=== PATIENT | female | born 1940 | race Caucasian/White ===

== ENCOUNTER 2016-05-23 04:19 | Inpatient (IN) | payer MEDICARE, MEDICAID ==
[2016-05-23 04:52] LABS: ALLEN'S TEST PASS
[2016-05-23 04:54] LABS: ABG Draw Site Right Radial; TCO2 40.3 MMOL/L (23-27)
[2016-05-23 04:57] LABS: AUTOMATED BASOPHIL 0.3 % (0-2); AUTOMATED EOSINOPHIL 0.4 % (0-5); AUTOMATED LYMPH 5.8 % (17-44); AUTOMATED MONOCYTE 3.9 % (3-10); AUTOMATED NEUTROPHIL 89.6 % (45-76); MPV 7.8 fL (7.4-10.4)
[2016-05-23] MEDS ORDERED: Albuterol/Ipratropium Neb 3 ML NEB NEB ONE (04:58)
[2016-05-23] MEDS ORDERED: ALBUTEROL 0.083% 3 ML NEB NEB ONE (04:58)
[2016-05-23 05:03] LABS: PARTIAL THROMB. TIME 26.7 SEC (22-35)
[2016-05-23 05:05] LABS: BLOOD UREA NITROGEN 35 MG/DL (7-17); CALCULATED OSMOLALITY 278 MOs/Kg (270-290); CHLORIDE 88 mEq/L (98-107); GLUCOSE 235 MG/DL (70-99); SODIUM LEVEL 136 mEq/L (137-146); TOTAL PROTEIN 6.9 G/DL (6.3-8.2)
--- NOTE | 2016-05-23 05:16 | DIRPT ---
CLINICAL DATA: Acute onset of shortness of breath. Productive cough. Initial encounter. EXAM: PORTABLE CHEST 1 VIEW COMPARISON: Chest radiograph performed 05/20/2016 FINDINGS: The lungs are well-aerated. Vascular congestion is noted. There is no evidence of focal opacification, pleural effusion or pneumothorax. The cardiomediastinal silhouette is borderline normal in size. No acute osseous abnormalities are seen. There is chronic superior subluxation of both humeral heads, reflecting underlying chronic rotator cuff tears. IMPRESSION: Vascular congestion noted. Lungs remain grossly clear. Electronically Signed By: Mikey Downs M.D. On: 05/23/2016 05:13
--- NOTE | 2016-05-23 05:49 | EDPRACDOC ---
- General Information Chief Complaint: Dyspnea/Resp distress Stated Complaint: BREATHING DIFFICULTY Time Seen by Provider: 05/23/16 04:30 Information Source: Patient, [employer] Work[employer] Mode Of Arrival: Ambulance Home Medications: Home Medications Allopurinol [Zyloprim] 100 mg PO DAILY 05/23/16 Aspirin (Enteric Coated) [Ecotrin] 81 mg PO DAILY 05/23/16 Budesonide [Pulmicort Flexhaler] 180 mcg IH DAILY PRN 05/23/16 CYANOCOBALAMIN (Vitamin B-12) [Vitamin B-12] 1,000 mcg IM .MONTHLY 05/23/16 Calcium Carbonate [Calcium] 600 mg PO DAILY 05/23/16 Celecoxib [Celebrex] 200 mg PO BID 05/23/16 ClonazePAM [Klonopin] 0 mg PO TID 05/23/16 Colchicine 0.6 mg PO BID PRN 05/23/16 Diltiazem HCl [Diltiazem ER] 240 mg PO DAILY 05/23/16 Gabapentin 100 mg PO BID 05/23/16 Insulin Detemir [Levemir Flextouch] 15 unit SQ HS 05/23/16 Ipratropium [place] 15 ml NS DAILY PRN 05/23/16 Iron [Niferex-150] 65 mg PO DAILY 05/23/16 Omeprazole 40 mg PO DAILY 05/23/16 Oxycodone HCl/Acetaminophen [Oxycodone-Acetaminophen 5-325] 1 tab PO TID Potassium Chloride 20 meq PO DAILY 05/23/16 Sertraline HCl 150 mg PO DAILY 05/23/16 Tiotropium [place] [Spiriva] 18 mcg INH DAILY PRN 05/23/16 Tramadol HCl [Ultram] 50 mg PO TID 05/23/16 Allergies/Adverse Reactions: Allergies Allergy/AdvReac Type Severity Reaction Status Date / Time morphine Allergy See Verified 05/23/16 04:55 Comments - History of Present Illness Onset: 1 WEEK Shortness of Breath: Moderate Relevant History: Reports: COPD (END STAGE) Cough: Reports: Non-productive SOB Worsens with: Reports: Nothing, Movement, Anxiety, Coughing SOB Improves with: Reports: Inhaler, Rest, Position Associated Signs and symptoms: Reports: Cough - Treatment Prior to ED Arrival Reported Medications/Treatment [employer] Solu-Medrol (Dose/Time) 125 mg IV Meds/Treatments Given Neb Treatment(Albuterol) Medications [employer] (Medication/ Albuterol, Duo Neb Dose/Time) EMS Treatment ALS IV Yes Comment 20 G IV right wrist ED Past Medical History - Patient Medical History Cardiac History: Reports: Atrial Fibrillation (Paroxysmal), Hypertension, Congestive Heart Failure Respiratory History: Reports: Asthma, COPD, Pneumonia GI/ History: Reports: Urinary Tract Infection, Gastroesophageal Reflux Musculoskeletal History: Reports: Arthritis, Gout Psychological History: Reports: Anxiety. Denies: Depression, Substance Use Disorder Systemic History: Reports: Diabetes Additional Past Medical History: ODONTOID fracture (11/29/13) STILL NONUNION Surgical History: Reports: Cholecystectomy, Tonsillectomy/Adnoidectomy, Other ( Unable to determine at this time.) - Family Medical History Reports: Diabetes (Mother), Cancer (brother and sister), Cardiac Disorders ( Mother). Denies: Hypertension, Stroke - Social Medical History Smoking Status: Former smoker Social History: Denies: Substance Use Disorder - Physical Exam Constitutional: Alert, Distress, Restless. negative: Well nourished, Well appearing Oriented to: Time, Person, Place Last recorded Vital Signs: Last Vital Signs Temp 100.0 F 05/23/16 04:20 Pulse 132 H 05/23/16 04:55 Resp 22 05/23/16 04:55 BP 148/79 05/23/16 04:55 Pulse Ox 95 05/23/16 04:55 Oxygen Pulse Oxygen Saturation 95 O2 Device Nasal Cannula Oxygen Flow Rate 2 Fraction of Inspired Oxygen ( FIO2) - HEENT Head: Normal Eye Exam: Normal. negative: Pale Conjunctiva, Scleral Icterus Oropharynx: Normal. negative: Membranes Dry Neck: Normal. negative: Edema, Limited ROM, Lymphadenopathy, Meningeal Signs - Respiratory/Cardiovascular Respiratory: Accessory Muscle Use, Diminished, Rhonchi, Tachypnea, Wheezes, Other (UNABLE TO SPEAK CLEARLY) Cardiovascular: Tachycardia - GI Auscultation: Normal Tenderness: Non tender Mcgee's Sign: Negative - Bladder: Normal - Musculoskeletal Back: Normal. negative: CVA Tenderness Extremities: Clubbing, Cyanosis, Other (CHRONIC VENOUS STAINING). negative: Pedal Edema - Integumentary Skin: Normal, Warm, Dry - Neurologic Memory Impaired: Normal Motor Function: Other ([place]) Mood Description: Anxious Thought: Coherent ED SOB MDM - Re-evaluation Re-evaluation 3 Re-evaluation Time: 05:56 (MUCH IMPROVED) - Results Result Diagrams: 05/23/16 04:43 05/23/16 04:43 Results: WBC 5.5 xk/uL (3.8-10.8) 05/23/16 04:43 RBC 4.22 xM/uL (4.20-5.40) 05/23/16 04:43 Hgb 12.3 g/dL (12.0-16.0) 05/23/16 04:43 Hct 36.6 % (36-47) 05/23/16 04:43 MCV 87 fL (81-99) 05/23/16 04:43 MCH 29.0 pg (27-32) 05/23/16 04:43 MCHC 33.5 g/dl (33-36) 05/23/16 04:43 RDW 14.6 % (11.5-14.5) H 05/23/16 04:43 Plt Count 100 xk/uL (130-400) L 05/23/16 04:43 MPV 7.8 fL (7.4-10.4) 05/23/16 04:43 Neut % (Auto) 89.6 % (45-76) H 05/23/16 04:43 Lymph % (Auto) 5.8 % (17-44) L 05/23/16 04:43 [place] % (Auto) 3.9 % (3-10) 05/23/16 04:43 Eos % (Auto) 0.4 % (0-5) 05/23/16 04:43 Baso % (Auto) 0.3 % (0-2) 05/23/16 04:43 Absolute Neuts (auto) 4.90 xk/uL (1.7-8.2) 05/23/16 04:43 Absolute Lymphs (auto) 0.28 xk/uL (0.65-4.75) L 05/23/16 04:43 PT 10.5 SEC (9.2-11.2) 05/23/16 04:43 INR 1.0 05/23/16 04:43 APTT 26.7 SEC (22-35) 05/23/16 04:43 Puncture Site Right radial 05/23/16 04:45 pH 7.400 pH UNITS (7.35-7.45) 05/23/16 04:45 pCO2 62.0 mmHg (35-45) H 05/23/16 04:45 pO2 76.0 mmHg (80-100) L 05/23/16 04:45 HCO3 38.4 MMOL/L (22-26) H 05/23/16 04:45 Total CO2 40.3 MMOL/L (23-27) H 05/23/16 04:45 Base Excess 11.0 (+/- 2) H 05/23/16 04:45 FiO2 % 3 05/23/16 04:45 Specimen Drawn By Rakma 05/23/16 04:45 Sodium 136 mEq/L (137-146) L 05/23/16 04:43 Potassium 4.2 mEq/L (3.5-5.1) 05/23/16 04:43 Chloride 88 mEq/L (98-107) L 05/23/16 04:43 Carbon Dioxide 38 mMOL/L (22-33) H 05/23/16 04:43 Anion Gap 14 mEq/L (8-16) 05/23/16 04:43 BUN 35 MG/DL (7-17) H 05/23/16 04:43 Creatinine 1.20 MG/DL (0.52-1.04) H 05/23/16 04:43 Estimated GFR (MDRD) 44 mL/min (>=60) L 05/23/16 04:43 Glucose 235 MG/DL (70-99) H 05/23/16 04:43 Calculated Osmolality 278 MOs/Kg (270-290) 05/23/16 04:43 Lactic Acid 1.6 mEq/L (0.7-2.1) 05/23/16 04:43 Calcium 9.0 MG/DL (8.4-10.2) 05/23/16 04:43 Total Bilirubin 0.7 MG/DL (0.2-1.3) 05/23/16 04:43 AST 32 IU/L (14-36) 05/23/16 04:43 ALT 36 IU/L (9-52) 05/23/16 04:43 Alkaline Phosphatase 184 IU/L (55-165) H 05/23/16 04:43 Ypd-E-Wxvenwyaccy Pept 316 pg/mL (0-900) 05/23/16 04:43 Total Protein 6.9 G/DL (6.3-8.2) 05/23/16 04:43 Albumin 4.1 G/DL (3.5-5.0) 05/23/16 04:43 Lab Results 05/23/16 05/23/16 05/23/16 04:45 04:43 04:43 WBC 5.5 RBC 4.22 Hgb 12.3 Hct 36.6 MCV 87 MCH 29.0 MCHC 33.5 RDW 14.6 H Plt Count 100 L MPV 7.8 Neut % (Auto) 89.6 H Lymph % (Auto) 5.8 L [place] % (Auto) 3.9 Eos % (Auto) 0.4 Baso % (Auto) 0.3 Absolute Neuts (auto) 4.90 Absolute Lymphs (auto) 0.28 L PT 10.5 INR 1.0 APTT 26.7 Puncture Site Right radial pH 7.400 pCO2 62.0 H pO2 76.0 L HCO3 38.4 H Total CO2 40.3 H Base Excess 11.0 H FiO2 % 3 Specimen Drawn By Rakma Sodium Potassium Chloride Carbon Dioxide Anion Gap BUN Creatinine Estimated GFR (MDRD) Glucose Calculated Osmolality Lactic Acid Calcium Total Bilirubin AST ALT Alkaline Phosphatase Qff-G-Tviaqbrixce Pept Total Protein Albumin 05/23/16 05/23/16 04:43 04:43 WBC RBC Hgb Hct MCV MCH MCHC RDW Plt Count MPV Neut % (Auto) Lymph % (Auto) [place] % (Auto) Eos % (Auto) Baso % (Auto) Absolute Neuts (auto) Absolute Lymphs (auto) PT INR APTT Puncture Site pH pCO2 pO2 HCO3 Total CO2 Base Excess FiO2 % Specimen Drawn By Sodium 136 L Potassium 4.2 Chloride 88 L Carbon Dioxide 38 H Anion Gap 14 BUN 35 H Creatinine 1.20 H Estimated GFR (MDRD) 44 L Glucose 235 H Calculated Osmolality 278 Lactic Acid 1.6 Calcium 9.0 Total Bilirubin 0.7 AST 32 ALT 36 Alkaline Phosphatase 184 H Mjp-B-Xjnroxtazbn Pept 316 Total Protein 6.9 Albumin 4.1 - EKG EKG #1 EKG Time: 04:33 -: Yes EKG interpreted by me Rate: bpm: 128 [place]: LAD Rhythm: NSR Block: 1, RBBB Hypertrophy: LVH ST: Inf, Nonsp Comparison: 02/18/16 (SIMILAR) - Diagnostic Imaging Chest Image interpreted by: Radiologist Diagnostic Imaging Comments: Patient Name: HSELLY PEARCE LOC: ED : 1940 AGE: 75 Order Date:05/23/16 Date of Service: Report # [id number] Ord Physician: Evangelina Rosen MD Exam # [id number] Emergency Physician: Evangelina Rosen MD Exam(s): [id number] RAD/DG CHEST PORTABLE CLINICAL DATA: Acute onset of shortness of breath. Productive cough. Initial encounter. EXAM: PORTABLE CHEST 1 VIEW COMPARISON: Chest radiograph performed 05/20/2016 FINDINGS: The lungs are well-aerated. Vascular congestion is noted. There is no evidence of focal opacification, pleural effusion or pneumothorax. The cardiomediastinal silhouette is borderline normal in size. No acute osseous abnormalities are seen. There is chronic superior subluxation of both humeral heads, reflecting underlying chronic rotator cuff tears. IMPRESSION: Vascular congestion noted. Lungs remain grossly clear. Electronically Signed By: Mikey Downs M.D. On: 05/23/2016 05:13 Electronically Signed By: Mikey Downs MD Electronically Signed Date/Time: [id number] Dictate Date/Time: 05/23/16511 Technologist: Erna Odom Transcribed By: Marisa Transcribed Date/Time: 05/23/16 0513 - Departure Disposition: Admit IP To This Hospital Condition: Stable Final Diagnosis: COPD with acute lower respiratory infection, Respiratory distress Instructions: COPD (Chronic Obstructive Pulmonary Disease) (ED) Education/Counseling Given To: Patient Education/Counseling Given Regarding: Diagnosis, Treatment, Prognosis Decision to Admit Time: 05:58 Decision to admit date: 05/23/16 Decision to admit: from ED - Physician Consulted Hospitalist Time Called: 05:58 Provider Called: Roque Gonzalez Time Stock Turner Returned Call: 05:58
[2016-05-23] MEDS ORDERED: Levofloxacin 750 mg/150 ml D5W 750 MG/150 ML RTU IV ONE (05:58)
--- NOTE | 2016-05-23 06:04 | HISTPHYS ---
- Chief Complaint shortness of breath - History of Present Illness PRIMARY CARE PROVIDER: Dr. Cullen in [place], [place] HPI: The patient is a 75 yo woman with severe COPD, chronic respiratory failure on 3L NC at home, who presents with worsening shortness of breath. Onset: 1 week ago. Duration: intermittent first, then constant. Became so severe today that she could not even speak a full sentence. Character: Severe shortness of breath even at rest. Alleviated by: Nothing. Exacerbated by: Nothing. Associated Symptoms: Fever at home. No chills or diaphoresis. Shortness of breath. Coughing productive of yellow sputum. Wheezing. No chest pain. Has heart racing and palpitations. Right heel pain. Chronic abdominal pain x 1 year with chronic constipation. No weight change and no leg swelling. Treatments: none at home except usual medications. In the emergency department, she was found to be in acute distress, with severe tachypnea and tachycardia in the 130s. She was started on BiPAP. - Medical History Cardiac History: Reports: Atrial Fibrillation (Paroxysmal), Hypertension, Congestive Heart Failure (06/2015 ECHO: EF 50-55%. DIASTOLIC. Hypokinesis mid+ apical inferior wall LV.), Other (06/2015 ECHO: EF 50-55%. DIASTOLIC. Hypokinesis mid+apical inferior wall LV. Pulm art pressure 37mmHg.) Respiratory History: Reports: Asthma, COPD (and chronic respiratory failure, on 2L NC), Pneumonia, Other (OBSTRUCTIVE SLEEP APNEA, USES CPAP) GI/ History: Reports: Urinary Tract Infection, Gastroesophageal Reflux (one year of chronic abdominal pain unknown etiology. Chronic constipation.) Musculoskeletal History: Reports: Arthritis, Gout Systemic History: Reports: Diabetes (Type 2, on insulin) Neurological History: Reports: Other (C SPINE FRACTURE, [facility], APPROX 2013, NO SURGERY.) Psychological History: Reports: Anxiety. Denies: Depression, Substance Use Disorder - Surgical History Reports: Cholecystectomy, Tonsillectomy/Adnoidectomy, Other (Benign growths removed - throat. L lumpectomy: benign. R leg. Cataracts.) - Medictions/Allergies Allergies morphine Allergy (Verified 05/23/16 04:55) See Comments VISUAL HALLUCINATIONS Current Medication List: Reviewed Home Medications Allopurinol [Zyloprim] 100 mg PO DAILY 05/23/16 Aspirin (Enteric Coated) [Ecotrin] 81 mg PO DAILY 05/23/16 Budesonide [Pulmicort Flexhaler] 180 mcg IH DAILY PRN 05/23/16 CYANOCOBALAMIN (Vitamin B-12) [Vitamin B-12] 1,000 mcg IM .MONTHLY 05/23/16 Calcium Carbonate [Calcium] 600 mg PO DAILY 05/23/16 Celecoxib [Celebrex] 200 mg PO BID 05/23/16 ClonazePAM [Klonopin] 0 mg PO TID 05/23/16 Colchicine 0.6 mg PO BID PRN 05/23/16 Diltiazem HCl [Diltiazem ER] 240 mg PO DAILY 05/23/16 Gabapentin 100 mg PO BID 05/23/16 Insulin Detemir [Levemir Flextouch] 15 unit SQ HS 05/23/16 Ipratropium [place] 15 ml NS DAILY PRN 05/23/16 Iron [Niferex-150] 65 mg PO DAILY 05/23/16 Omeprazole 40 mg PO DAILY 05/23/16 Oxycodone HCl/Acetaminophen [Oxycodone-Acetaminophen 5-325] 1 tab PO TID Potassium Chloride 20 meq PO DAILY 05/23/16 Sertraline HCl 150 mg PO DAILY 05/23/16 Tiotropium [place] [Spiriva] 18 mcg INH DAILY PRN 05/23/16 Tramadol HCl [Ultram] 50 mg PO TID 05/23/16 - Family History Reports: Diabetes (Mother), Cancer (brother and sister), Cardiac Disorders ( Mother), Other (Father of infection). Denies: Hypertension, Stroke - Social History Lives: With Family Smoking Status: Former smoker (Previously 1 ppd. Quit 2005. Started 17 yo.) Social History: Denies: Alcohol Use, Substance Use Disorder Presents with [facility] DNR form. Discussed form and code status with patient 05/23/16: patient states she wants to continue with DNR code status. - Review of Systems GENERAL: Fever at home. No chills or diaphoresis. Positive for fatigue/malaise. HEENT: No ear pain or discharge. No nasal discharge or bleeding. No throat pain or swelling. No eye pain or eye redness. RESPIRATORY: Shortness of breath. Coughing productive of yellow sputum. Wheezing. CARDIOVASCULAR: No chest pain. Has heart racing and palpitations. GI: Chronic abdominal pain x 1 year with chronic constipation. No nausea, vomiting, diarrhea, or bloody stool. NEUROLOGICAL: No headache or new focal weakness. Chronic upper extremity weakness. INTEGUMENT: no rashes, itching, or lesions. LYMPHATIC SYSTEM: no lymph node swelling or pain. MUSCULOSKELETAL: Right heel pain; otherwise, no new pain or joint swelling. GENITOURINARY: No dysuria or hematuria. ENDOCRINE: No polyuria or polydipsia. HEME: No chronic anemia, bleeding. Positive for easy bruising. - Physical Exam Vital Signs: Initial Vitals Temperature 100.0 F 05/23/16 04:20 Pulse Rate 131 H 05/23/16 04:20 Respiratory Rate 35 H 05/23/16 04:20 Blood Pressure 206/86 H 05/23/16 04:20 Pulse Oxygen Saturation 93 05/23/16 04:20 Vital Signs - 24 hr 05/23/16 05/23/16 05/23/16 04:20 04:55 07:08 Temperature 100.0 F 98.8 F Pulse Rate 131 H 132 H 114 Respiratory 35 H 22 18 Rate Blood Pressure 206/86 H 148/79 127/82 Pulse Oxygen 93 95 99 Saturation 05/23/16 07:15 Temperature Pulse Rate 120 H Respiratory 18 Rate Blood Pressure 144/84 Pulse Oxygen 91 Saturation Weight: 59.1 kg Height: 5'2" BMI: 23.8 - Other Exam Other Exam Findings: GENERAL: Ill-appearing, thin, in acute distress. HEENT: Normocephalic, atraumatic; pupils equal and round. Nares patent, without discharge or bleeding. No oropharyngeal lesions or erythema. Mucous membranes are dry. NECK: is supple, no masses, trachea midline. RESPIRATORY: Clear to auscultation bilaterally. Chest wall movements are symmetric. Tachypnea and use of accessory muscles to breathe. No rales. Bilateral inspiratory and expiratory wheezing. Bilateral coarse breath sounds/rhonchi. CARDIOVASCULAR: Normal S1, S2. Murmur 2/6 systolic. No rubs, or gallops. PMI non -displaced. Carotids: no carotid bruits. Tachycardia. DP pulses 2+ bilaterally. GI: soft, non-distended, normal active bowel sounds. No hepatosplenomegaly. Mild generalized tenderness. INTEGUMENT: Clean, dry, and intact. Large areas of ecchymoses on arms and legs. Legs with hyperpigmentation bilaterally. MUSCULOSKELETAL: Moving all extremities. No cyanosis. Clubbing. Edema: none bilaterally. Tenderness to palpation of right heel. NEUROLOGICAL: Cranial nerves 2-12 grossly intact. Motor 5/5 throughout lower extremities, 3+/5 in upper extremities (is chronic per patient). Reflexes: 2+ bilaterally. Babinski: toes downgoing bilaterally. Intact Finger to nose. Sensory grossly intact to light touch. Intact rapid alternating movements bilaterally. Bilateral pronator drift. PSYCHIATRIC: Fully oriented. Normal and appropriate affect. LYMPHATIC: No cervical lymphadenopathy. No supraclavicular lymphadenopathy. - Lab Results Laboratory Results - last 24 hr 05/23/16 05/23/16 05/23/16 04:43 04:43 04:43 WBC 5.5 RBC 4.22 Hgb 12.3 Hct 36.6 MCV 87 MCH 29.0 MCHC 33.5 RDW 14.6 H Plt Count 100 L MPV 7.8 Neut % (Auto) 89.6 H Lymph % (Auto) 5.8 L [place] % (Auto) 3.9 Eos % (Auto) 0.4 Baso % (Auto) 0.3 Absolute Neuts (auto) 4.90 Absolute Lymphs (auto) 0.28 L PT INR APTT Puncture Site pH pCO2 pO2 HCO3 Total CO2 Base Excess FiO2 % Specimen Drawn By Sodium 136 L Potassium 4.2 Chloride 88 L Carbon Dioxide 38 H Anion Gap 14 BUN 35 H Creatinine 1.20 H Estimated GFR (MDRD) 44 L Glucose 235 H Calculated Osmolality 278 Lactic Acid 1.6 Calcium 9.0 Total Bilirubin 0.7 AST 32 ALT 36 Alkaline Phosphatase 184 H Mwj-K-Hylcvquybft Pept 316 Total Protein 6.9 Albumin 4.1 Urine Color Urine Clarity Urine pH Ur Specific [place] Urine Protein Urine Glucose (UA) Urine Ketones Urine Occult Blood Urine Nitrite Urine Bilirubin Urine Urobilinogen Ur Leukocyte Esterase Urine RBC Urine WBC Urine Bacteria 05/23/16 05/23/16 05/23/16 04:43 04:45 05:40 WBC RBC Hgb Hct MCV MCH MCHC RDW Plt Count MPV Neut % (Auto) Lymph % (Auto) [place] % (Auto) Eos % (Auto) Baso % (Auto) Absolute Neuts (auto) Absolute Lymphs (auto) PT 10.5 INR 1.0 APTT 26.7 Puncture Site Right radial pH 7.400 pCO2 62.0 H pO2 76.0 L HCO3 38.4 H Total CO2 40.3 H Base Excess 11.0 H FiO2 % 3 Specimen Drawn By Rakma Sodium Potassium Chloride Carbon Dioxide Anion Gap BUN Creatinine Estimated GFR (MDRD) Glucose Calculated Osmolality Lactic Acid Calcium Total Bilirubin AST ALT Alkaline Phosphatase Gry-Y-Zfqqlhacduh Pept Total Protein Albumin Urine Color Pale yellow Urine Clarity Clear Urine pH 8.0 Ur Specific [place] 1.005 Urine Protein 1+ H Urine Glucose (UA) Trace Urine Ketones Neg Urine Occult Blood Neg Urine Nitrite Neg Urine Bilirubin Neg Urine Urobilinogen <2.0 Ur Leukocyte Esterase Neg Urine RBC 0-2 Urine WBC 0-2 Urine Bacteria Few - Diagnostic Findings EK bpm. Sinus tachycardia. Incomplete right bundle branch block. LVH with repolarization abnormality. Reviewed EKG personally. Chest x-ray, viewed personally: EXAM: PORTABLE CHEST 1 VIEW COMPARISON: Chest radiograph performed 05/20/2016 FINDINGS: The lungs are well-aerated. Vascular congestion is noted. There is no evidence of focal opacification, pleural effusion or pneumothorax. The cardiomediastinal silhouette is borderline normal in size. No acute osseous abnormalities are seen. There is chronic superior subluxation of both humeral heads, reflecting underlying chronic rotator cuff tears. IMPRESSION: Vascular congestion noted. Lungs remain grossly clear. - Assessment (1) Acute and chronic respiratory failure with hypercapnia J96.22 - ACUTE AND CHRONIC RESPIRATORY FAILURE WITH HYPERCAPNIA Acute Present on Admission: Yes Patient has dyspnea and is not improving. Patient's pCO2 is high. Plan: Place patient on oxygen by BiPAP and increase as needed. Monitor oxygen saturation levels and keep O2 sats greater than 92%. (2) COPD with acute lower respiratory infection J44.0 - CHRONIC OBSTRUCTIVE PULMON DISEASE W ACUTE LOWER RESP INFCT Acute Present on Admission: Yes COPD exacerbation, severe. Plan: Nebs of Duoneb q 6 hours scheduled and albuterol q 2 hours prn. Sputum culture ordered. IV Levaquin. IV methylprednisolone. Continuous oxygen support. Keep sats below 95% due to COPD. (3) Thrombocytopenia D69.6 - THROMBOCYTOPENIA, UNSPECIFIED Acute Present on Admission: Yes Had one episode in 12/2015 but resolved. On admission has mild thrombocytopenia. Etiology unknown. She does have severe ecchymoses. Plan: Monitor CBC. Hemoccult. No Lovenox. (4) Sinus tachycardia R00.0 - TACHYCARDIA, UNSPECIFIED Acute Present on Admission: Yes Tachycardia to 130s in emergency department. May be due to acute respiratory failure along with albuterol use, but could have other causes. Plan: Telemetry. Check enzymes. Further treatment depending on course. (5) Type 2 diabetes mellitus with hyperglycemia E11.65 - TYPE 2 DIABETES MELLITUS WITH HYPERGLYCEMIA Acute Present on Admission: Yes Plan: Lower home dose of long-acting insulin. Check FSBS qac and hs. Check a1c and urine microalbumin. (6) Pain of right heel M79.671 - PAIN IN RIGHT FOOT Acute Present on Admission: Yes Etiology unknown, but has been present for more than a few weeks. Plan: PRN pain medication. Follow up with primary physician. (7) Chronic abdominal pain R10.9 - UNSPECIFIED ABDOMINAL PAIN; G89.29 - OTHER CHRONIC PAIN Chronic Present on Admission: Yes Patient reports she has had abdominal pain x 1 year but it has not been investigated. Plan: Advised patient to make a separate appointment with her primary care physician to address her chronic abdominal pain. (8) Chronic diastolic (congestive) heart failure I50.32 - CHRONIC DIASTOLIC (CONGESTIVE) HEART FAILURE Chronic Present on Admission: Yes Has CHRONIC but not acute diastolic CHF. Plan: Beta greg, JON inhibitor as tolerated. Home medications. Monitor for fluid overload. (9) DNR (do not resuscitate) Z66 - DO NOT RESUSCITATE Acute Present on Admission: Yes Presents with [facility] DNR form. Discussed form and code status with patient 05/23/16: patient states she wants to continue with DNR code status. - Plan In summary, this patient is acutely and critically ill. The patient requires treatment of vital organ failure and measures to prevent further life- threatening deterioration of condition. I have spent 60 min in the critical care of this patient. Case Care Discussed with: Patient, Nursing Staff Total Time: 60 min Critical Care: Yes Code: 291
[2016-05-23 06:10] LABS: LEUKOCYTES/URINE NEG (NEGATIVE); NITRITE/URINE NEG (NEGATIVE); RBC/URINE 0-2 (0-5); URINE OCCULT BLOOD NEG (NEG/TRACE); WBC/URINE 0-2 (0-5)
[2016-05-23] MEDS ORDERED: OXYCODONE HCL 5 MG TABLET PO ONE (06:44)
[2016-05-23] MEDS ORDERED: OXYCODONE HCL 5 MG TABLET PO PRN (06:44)
[2016-05-23] MEDS ORDERED: TRAMADOL HCL 50 MG TAB PO PRN (06:44)
[2016-05-23] MEDS ORDERED: COLCHICINE 0.6 MG TAB PO PRN (07:42)
[2016-05-23] MEDS ORDERED: DEXTROSE 25 GM/50 ML PFS IV PRN (07:50)
[2016-05-23] MEDS ORDERED: SIMETHICONE 80 MG TAB PO PRN (07:50)
[2016-05-23] MEDS ORDERED: GUAIFEN 100 MG-DEXTROMETH 10 MG PER 5 ML PO PRN (07:50)
[2016-05-23] MEDS ORDERED: GLUCAGON 1 MG VIAL SQ PRN (07:50)
[2016-05-23] MEDS ORDERED: PROMETHAZINE 25 MG/ML VIAL IV PRN (07:50)
[2016-05-23] MEDS ORDERED: GLUCOSE (ORAL GEL) 15 GM TUBE PO PRN (07:50)
[2016-05-23] MEDS ORDERED: BISACODYL 5 MG TAB PO PRN (07:50)
[2016-05-23] MEDS ORDERED: ONDANSETRON HCL 4 MG/2 ML VIAL IV PRN (07:50)
[2016-05-23] MEDS ORDERED: ACETAMINOPHEN 325 MG SUPP PR PRN (07:50)
[2016-05-23] MEDS ORDERED: BENZONATATE 100 MG PERLES PO PRN (07:50)
[2016-05-23] MEDS ORDERED: Docusate Sodium 100 MG CAP PO PRN (07:50)
[2016-05-23] MEDS ORDERED: ACETAMINOPHEN 325 MG/TAB TABLET PO PRN (07:50)
[2016-05-23] MEDS ORDERED: SENNA CONCENTRATE TAB PO PRN (07:50)
[2016-05-23] MEDS ORDERED: INSULIN DETEMIR 100 UNITS/ML PEN SQ SCH (08:00)
[2016-05-23] MEDS ORDERED: Celecoxib 200 MG CAP PO SCH (09:00)
[2016-05-23] MEDS ORDERED: CALCIUM CARBONATE 600 MG PO SCH (09:00)
[2016-05-23] MEDS ORDERED: DILTIAZEM HCL 240 MG PO SCH (09:00)
[2016-05-23] MEDS ORDERED: Non-Formulary Medication ITEM (Omeprazole [Omeprazole] 40 MG) PO SCH (09:00)
[2016-05-23] MEDS: Albuterol/Ipratropium Neb 3 ML NEB NEB SCH ×3 (09:13→19:33)
[2016-05-23] MEDS: GABAPENTIN 100 MG CAP PO SCH ×3 (10:22→20:03)
[2016-05-23] MEDS: SERTRALINE HCL 100 MG TAB PO SCH (10:23)
[2016-05-23] MEDS: PANTOPRAZOLE 40 MG TAB PO SCH (10:24)
[2016-05-23] MEDS: METHYLPREDNISOLONE 125 MG/2 ML VIAL IV SCH ×3 (10:24→23:21)
[2016-05-23] MEDS: ALLOPURINOL 100 MG TAB PO SCH (10:24)
[2016-05-23] MEDS: TRAMADOL HCL 50 MG TAB PO SCH ×3 (10:27→23:21)
[2016-05-23] MEDS ORDERED: Vaccine Screening Complete SCH (11:00)
[2016-05-23] MEDS ORDERED: MORPHINE 2 MG/ML INJECTION IV PRN (11:23)
[2016-05-23] MEDS ORDERED: CALCIUM CARBONATE 500 MG TAB PO SCH (12:00)
[2016-05-23] MEDS: REGULAR INSULIN 100 UNITS/ML - 3 ML VIAL SQ SCH ×3 (12:18→20:06)
[2016-05-23] MEDS: POTASSIUM CHLORIDE 20 MEQ TAB PO SCH (12:19)
[2016-05-23] MEDS: IRON POLYSACCHARIDE CAP PO SCH (12:19)
[2016-05-23] MEDS: Celecoxib 200 MG CAP PO SCH (17:13)
[2016-05-23] MEDS: OXYCODONE HCL 5 MG TABLET PO PRN (20:03)
[2016-05-23] MEDS: INSULIN DETEMIR 100 UNITS/ML PEN SQ SCH (20:03)
[2016-05-23] MEDS: REMOVE PATCH MAR ALERT SCH (20:07)
[2016-05-23] MEDS: FENTANYL 12 MCG PATCH TOP SCH (21:22)
[2016-05-23] MEDS: TEMAZEPAM 15 MG CAP PO PRN (23:24)
[2016-05-24] MEDS: Albuterol/Ipratropium Neb 3 ML NEB NEB SCH ×4 (01:45→19:58)
[2016-05-24 04:25] VITALS: BMI 26.6
[2016-05-24] MEDS: GABAPENTIN 100 MG CAP PO SCH ×3 (04:55→20:57)
[2016-05-24] MEDS: PANTOPRAZOLE 40 MG TAB PO SCH (04:56)
[2016-05-24] MEDS: REGULAR INSULIN 100 UNITS/ML - 3 ML VIAL SQ SCH ×4 (04:58→20:56)
[2016-05-24 05:13] LABS: BLOOD UREA NITROGEN 40 MG/DL (7-17); CALCIUM 9.4 MG/DL (8.4-10.2); CALCULATED OSMOLALITY 271 MOs/Kg (270-290); CHLORIDE 90 mEq/L (98-107); GLUCOSE 116 MG/DL (70-99); SODIUM LEVEL 135 mEq/L (137-146)
[2016-05-24] MEDS: OXYCODONE HCL 5 MG TABLET PO PRN ×2 (05:48→20:56)
[2016-05-24] MEDS ORDERED: FLU VACCINE (Afluria) 0.5 ML DOSE IM ONE (08:00)
[2016-05-24] MEDS: TRAMADOL HCL 50 MG TAB PO SCH ×2 (08:29→16:24)
[2016-05-24] MEDS: Celecoxib 200 MG CAP PO SCH ×2 (08:29→16:26)
[2016-05-24] MEDS: METHYLPREDNISOLONE 125 MG/2 ML VIAL IV SCH ×2 (08:30→16:25)
[2016-05-24] MEDS: ALLOPURINOL 100 MG TAB PO SCH (08:31)
[2016-05-24] MEDS: SERTRALINE HCL 100 MG TAB PO SCH (08:31)
[2016-05-24] MEDS: IRON POLYSACCHARIDE CAP PO SCH (08:32)
[2016-05-24] MEDS: POTASSIUM CHLORIDE 20 MEQ TAB PO SCH (08:32)
[2016-05-24] MEDS ORDERED: FENTANYL 12 MCG PATCH TOP SCH (11:00)
[2016-05-24] MEDS ORDERED: DICLOFENAC 1% TOPICAL GEL 100 GM TUBE TOP SCH (11:00)
[2016-05-24] MEDS: DICLOFENAC 1% TOPICAL GEL 100 GM TUBE TOP SCH ×3 (12:37→20:58)
[2016-05-24] MEDS: TEMAZEPAM 15 MG CAP PO PRN (20:57)
[2016-05-24] MEDS: INSULIN DETEMIR 100 UNITS/ML PEN SQ SCH (20:57)
--- NOTE | 2016-05-24 21:02 | GENMEDPROG ---
Notes Reviewed: Yes Events from last night noted and discussed with Clinical Staff Current Medication List: Reviewed Currently: Reports: Cough, Wheezing, AMANDA, SOB DVT Prophylaxis: Yes - Physical Examination Vital Signs and I&O: Last Vital Signs Temp 97.6 F 05/24/16 19:32 Pulse 66 05/24/16 19:32 Resp 22 05/24/16 19:32 BP 114/57 L 05/24/16 19:32 Pulse Ox 100 05/24/16 19:32 Oxygen Pulse Oxygen Saturation 100 O2 Device Nasal Cannula Oxygen Flow Rate 2 Fraction of Inspired Oxygen ( 35 FIO2) Intake & Output 05/21/16 05/22/16 05/23/16 05/24/16 23:59 23:59 23:59 23:59 Intake Total 760 610 Output Total 1150 2100 Balance -390 -1490 Patient's weight 144 lb 12.8 oz 145 lb 9.6 oz General: Alert, Oriented x3, No acute distress, Well appearing, Well nourished HEENT: Normal (Normocephalic, atraumatic;EOMI.Sclera white, Nares patent, without discharge or bleeding. No oropharyngeal lesions or erythema. Mucous membranes are dry.) Neck: Non-tender, Full range of motion, Normal Trachea alignment, Normal inspection (No cervical lymphadenopathy. No supraclavicular lymphadenopathy.), No Masses palpable, Supple Lymphatics: Normal (No lymph node swelling or pain.) Respiratory: Accessory Muscle Use, Diminished, Rhonchi, Tachypnea, Wheezes, Other (UNABLE TO SPEAK CLEARLY) Cardiovascular: Regular rate and rhythm (No bradycardia or tachycardia), Normal S1, No Gallops,Rubs/Murmurs, Normal S2, Good Pedal Pulses (DP pulses 2+ bilaterally) GI: Normal bowel sounds (normal active sounds), Soft (non-distended), Non tender , No hepatospenomegaly, No masses Extremities/Musculoskeletal: Normal pulses (DP pulses 2+ bilaterally) Skin: Warm,Dry and Intact, No rashes, No significant lesion Neurological: Strength at 5/5 X4 ext (Motor 5/5 throughout.), Normal tone, Cranial nerves 3-12 NL ( 2-12 grossly intact.) Psych/Mental Status: Appropriate, Normal Affect Lab/DI/Studies Reviewed: Laboratory Results - last 24 hr 05/23/16 05/24/16 05/24/16 10:15 03:55 03:55 WBC 6.1 RBC 3.91 L Hgb 11.3 L Hct 34.1 L MCV 87 MCH 28.8 MCHC 33.0 RDW 14.3 Plt Count 109 L MPV 8.0 Sodium 135 L Potassium 5.0 Chloride 90 L Carbon Dioxide 40 H Anion Gap 10 BUN 40 H Creatinine 1.00 Estimated GFR (MDRD) 54 L Glucose 116 H POC Capillary Glucose Calculated Osmolality 271 Calcium 9.4 Ur Random Microalbumin 71.9 05/24/16 05/24/16 05/24/16 04:21 11:32 15:47 WBC RBC Hgb Hct MCV MCH MCHC RDW Plt Count MPV Sodium Potassium Chloride Carbon Dioxide Anion Gap BUN Creatinine Estimated GFR (MDRD) Glucose POC Capillary Glucose 120 H 337 H 228 H Calculated Osmolality Calcium Ur Random Microalbumin 05/24/16 19:34 WBC RBC Hgb Hct MCV MCH MCHC RDW Plt Count MPV Sodium Potassium Chloride Carbon Dioxide Anion Gap BUN Creatinine Estimated GFR (MDRD) Glucose POC Capillary Glucose 299 H Calculated Osmolality Calcium Ur Random Microalbumin - Assessment (1) Acute and chronic respiratory failure with hypercapnia Acute J96.22 - ACUTE AND CHRONIC RESPIRATORY FAILURE WITH HYPERCAPNIA Comment/Plan: Patient has dyspnea and is not improving. Patient's pCO2 is high. Plan: Place patient on oxygen by BiPAP and increase as needed. Monitor oxygen saturation levels and keep O2 sats greater than 92%. (2) Chronic diastolic (congestive) heart failure Chronic I50.32 - CHRONIC DIASTOLIC (CONGESTIVE) HEART FAILURE Comment/Plan: Has CHRONIC but not acute diastolic CHF. Plan: Beta greg, JON inhibitor as tolerated. Home medications. Monitor for fluid overload. (3) COPD with acute lower respiratory infection Acute J44.0 - CHRONIC OBSTRUCTIVE PULMON DISEASE W ACUTE LOWER RESP INFCT Comment/Plan: COPD exacerbation, severe. Plan: Nebs of Duoneb q 6 hours scheduled and albuterol q 2 hours prn. Sputum culture ordered. IV Levaquin. IV methylprednisolone. Continuous oxygen support. Keep sats below 95% due to COPD. (4) Diabetes mellitus Acute E11.9 - TYPE 2 DIABETES MELLITUS WITHOUT COMPLICATIONS Qualifiers: Diabetes mellitus type: type 2 Diabetes mellitus complication status: with neurologic complications Diabetes mellitus complication detail: with unspecified neuropathy Diabetes mellitus snf insulin use: without buttermaker continuous churn use Qualified Code(s): E11.40 - Type 2 diabetes mellitus with diabetic neuropathy, unspecified Comment/Plan: Steroids will exacerbate her glycemic control. A1c done within the past 2 months was 6.1. (5) Pain of right heel Acute M79.671 - PAIN IN RIGHT FOOT Comment/Plan: Etiology unknown, but has been present for more than a few weeks. Plan: PRN pain medication. Follow up with primary physician. (6) Thrombocytopenia Acute D69.6 - THROMBOCYTOPENIA, UNSPECIFIED Comment/Plan: Had one episode in 12/2015 but resolved. On admission has mild thrombocytopenia. Etiology unknown. She does have severe ecchymoses. Plan: Monitor CBC. Hemoccult. No Lovenox. (7) Sinus tachycardia Acute R00.0 - TACHYCARDIA, UNSPECIFIED Comment/Plan: Tachycardia to 130s in emergency department. May be due to acute respiratory failure along with albuterol use, but could have other causes. Plan: Telemetry. Check enzymes. Further treatment depending on course. (8) Chronic abdominal pain Chronic R10.9 - UNSPECIFIED ABDOMINAL PAIN; G89.29 - OTHER CHRONIC PAIN Comment/Plan: Patient reports she has had abdominal pain x 1 year but it has not been investigated. Plan: Advised patient to make a separate appointment with her primary care physician to address her chronic abdominal pain. (9) DNR (do not resuscitate) Acute Z66 - DO NOT RESUSCITATE Comment/Plan: Presents with [facility] DNR form. Discussed form and code status with patient 05/23/16: patient states she wants to continue with DNR code status. Case Care Discussed with: Patient Total Time: 40 Critical Care: No Code: 27991 (12+)
[2016-05-25] MEDS: METHYLPREDNISOLONE 125 MG/2 ML VIAL IV SCH ×4 (00:30→23:24)
[2016-05-25] MEDS: Albuterol/Ipratropium Neb 3 ML NEB NEB SCH ×4 (01:32→20:12)
[2016-05-25] MEDS: TRAMADOL HCL 50 MG TAB PO SCH ×4 (01:59→23:52)
[2016-05-25 05:29] LABS: BLOOD UREA NITROGEN 56 MG/DL (7-17); CALCULATED OSMOLALITY 265 MOs/Kg (270-290); CHLORIDE 84 mEq/L (98-107); GLUCOSE 213 MG/DL (70-99); SODIUM LEVEL 126 mEq/L (137-146)
[2016-05-25] MEDS: GABAPENTIN 100 MG CAP PO SCH ×3 (05:52→20:33)
[2016-05-25] MEDS: PANTOPRAZOLE 40 MG TAB PO SCH (05:52)
[2016-05-25] MEDS: REGULAR INSULIN 100 UNITS/ML - 3 ML VIAL SQ SCH ×4 (05:59→21:25)
[2016-05-25] MEDS ORDERED: Levofloxacin 750 mg/150 ml D5W 750 MG/150 ML RTU IV SCH (06:00)
[2016-05-25] MEDS: DICLOFENAC 1% TOPICAL GEL 100 GM TUBE TOP SCH ×4 (08:09→20:33)
[2016-05-25] MEDS: SERTRALINE HCL 100 MG TAB PO SCH (08:10)
[2016-05-25] MEDS: IRON POLYSACCHARIDE CAP PO SCH (08:10)
[2016-05-25] MEDS: POTASSIUM CHLORIDE 20 MEQ TAB PO SCH (08:10)
[2016-05-25] MEDS: Celecoxib 200 MG CAP PO SCH ×2 (08:11→16:10)
[2016-05-25] MEDS: ALLOPURINOL 100 MG TAB PO SCH (08:11)
--- NOTE | 2016-05-25 08:54 | GENMEDPROG ---
Chief Complaint: COPD exacerbation Subjective Note: Currently feeling a little short of breath, says that she was very comfortable overnight on BiPAP but is feeling little short of breath this morning on nasal cannula. Respiratory therapy is at the bedside. About to get a treatment. Notes Reviewed: Yes Events from last night noted and discussed with Clinical Staff Current Medication List: Reviewed Currently: Reports: Cough, Wheezing, AMANDA, SOB DVT Prophylaxis: Yes - Physical Examination Vital Signs and I&O: Last Vital Signs Temp 98.7 F 05/25/16 07:35 Pulse 63 05/25/16 07:35 Resp 22 05/25/16 07:35 BP 152/67 05/25/16 07:35 Pulse Ox 98 05/25/16 07:35 Oxygen Pulse Oxygen Saturation 98 O2 Device Nasal Cannula Oxygen Flow Rate 2 Fraction of Inspired Oxygen ( 35 FIO2) Intake & Output 05/23/16 05/24/16 05/25/16 05/26/16 06:59 06:59 06:59 06:59 Intake Total 760 610 Output Total 1500 2150 400 Balance -740 -1540 -400 Patient's weight 66.043 kg General: Alert, Oriented x3, No acute distress, Well appearing, Well nourished HEENT: Normal (Normocephalic, atraumatic;EOMI.Sclera white, Nares patent, without discharge or bleeding. No oropharyngeal lesions or erythema. Mucous membranes are dry.) Neck: Non-tender, Full range of motion, Normal Trachea alignment, Normal inspection (No cervical lymphadenopathy. No supraclavicular lymphadenopathy.), No Masses palpable, Supple Lymphatics: Normal (No lymph node swelling or pain.) Respiratory: Accessory Muscle Use, Diminished, Tachypnea, Other (UNABLE TO SPEAK CLEARLY) Cardiovascular: Regular rate and rhythm (No bradycardia or tachycardia), Normal S1, No Gallops,Rubs/Murmurs, Normal S2, Good Pedal Pulses (DP pulses 2+ bilaterally) GI: Normal bowel sounds (normal active sounds), Soft (non-distended), Non tender , No hepatospenomegaly, No masses Extremities/Musculoskeletal: Normal pulses (DP pulses 2+ bilaterally) Skin: Warm,Dry and Intact, No rashes, No significant lesion Neurological: Strength at 5/5 X4 ext (Motor 5/5 throughout.), Normal tone, Cranial nerves 3-12 NL ( 2-12 grossly intact.) Psych/Mental Status: Appropriate, Normal Affect Lab/DI/Studies Reviewed: Laboratory Tests 05/24/16 05/24/16 05/25/16 03:55 03:55 04:35 Hgb 11.3 L Sodium 135 L 126 L D BUN 40 H 56 H Creatinine 1.00 1.30 H - Assessment (1) Acute and chronic respiratory failure with hypercapnia Acute J96.22 - ACUTE AND CHRONIC RESPIRATORY FAILURE WITH HYPERCAPNIA Comment/Plan: Patient has dyspnea and is finally improving after hospital admission and BiPAP. Plan: Continue on oxygen by BiPAP and increase as needed, respiratory therapy has been consulted. Monitor oxygen saturation levels and keep O2 sats greater than 92%. (2) COPD with acute lower respiratory infection Acute J44.0 - CHRONIC OBSTRUCTIVE PULMON DISEASE W ACUTE LOWER RESP INFCT Comment/Plan: COPD exacerbation, severe. Plan: Nebs of Duoneb q 6 hours scheduled and albuterol q 2 hours prn. Sputum culture ordered. IV Levaquin. IV methylprednisolone, keep does stable today, started titrate once she improves more significantly. Continuous oxygen support. Keep sats below 95% due to COPD. (3) DNR (do not resuscitate) Acute Z66 - DO NOT RESUSCITATE Comment/Plan: Presents with [facility] DNR form. Discussed form and code status with patient 05/23/16: patient states she wants to continue with DNR code status. (4) Type 2 diabetes mellitus with hyperglycemia Acute E11.65 - TYPE 2 DIABETES MELLITUS WITH HYPERGLYCEMIA Comment/Plan: Plan: Lower home dose of long-acting insulin. Check FSBS qac and hs. Check a1c and urine microalbumin. (5) Chronic abdominal pain Chronic R10.9 - UNSPECIFIED ABDOMINAL PAIN; G89.29 - OTHER CHRONIC PAIN Comment/Plan: Patient reports she has had abdominal pain x 1 year but it has not been investigated. Plan: Advised patient to make a separate appointment with her primary care physician to address her chronic abdominal pain. (6) Chronic diastolic (congestive) heart failure Chronic I50.32 - CHRONIC DIASTOLIC (CONGESTIVE) HEART FAILURE Comment/Plan: Has CHRONIC but not acute diastolic CHF. Plan: Beta greg, JON inhibitor as tolerated. Home medications. Monitor for fluid overload.
--- NOTE | 2016-05-25 09:35 | DIRPT ---
CLINICAL DATA: Respiratory failure. EXAM: PORTABLE CHEST 1 VIEW COMPARISON: 05/23/2016 FINDINGS: Midline trachea. Normal heart size for level of inspiration. Atherosclerosis in the transverse aorta. No pleural effusion or pneumothorax. Mild left hemidiaphragm elevation. Volume loss and subsegmental atelectasis at the left lung base. Clear right lung. Vertebral augmentation within the thoracolumbar spine. IMPRESSION: No acute cardiopulmonary disease. Mild left base atelectasis and volume loss. Electronically Signed By: Tutu Hernandez M.D. On: 05/25/2016 09:33
[2016-05-25] MEDS: NS 1,000 ML IV SCH (11:22)
[2016-05-25] MEDS: OXYCODONE HCL 5 MG TABLET PO PRN (20:33)
[2016-05-25] MEDS: INSULIN DETEMIR 100 UNITS/ML PEN SQ SCH (20:35)
[2016-05-25 22:02] LABS: BLOOD UREA NITROGEN 60 MG/DL (7-17); CALCIUM 8.2 MG/DL (8.4-10.2); CALCULATED OSMOLALITY 268 MOs/Kg (270-290); CHLORIDE 87 mEq/L (98-107); GLUCOSE 264 MG/DL (70-99); SODIUM LEVEL 125 mEq/L (137-146)
[2016-05-25] MEDS: TEMAZEPAM 15 MG CAP PO PRN (23:24)
[2016-05-26] MEDS: Albuterol/Ipratropium Neb 3 ML NEB NEB SCH ×4 (01:32→20:28)
[2016-05-26] MEDS: NS 1,000 ML IV SCH ×3 (02:20→23:42)
[2016-05-26 05:04] LABS: BLOOD UREA NITROGEN 57 MG/DL (7-17); CALCIUM 8.7 MG/DL (8.4-10.2); CALCULATED OSMOLALITY 275 MOs/Kg (270-290); CHLORIDE 90 mEq/L (98-107); GLUCOSE 251 MG/DL (70-99); SODIUM LEVEL 130 mEq/L (137-146)
[2016-05-26] MEDS: OXYCODONE HCL 5 MG TABLET PO PRN ×2 (06:34→21:34)
[2016-05-26] MEDS: GABAPENTIN 100 MG CAP PO SCH ×3 (06:34→20:50)
[2016-05-26] MEDS: REGULAR INSULIN 100 UNITS/ML - 3 ML VIAL SQ SCH ×4 (06:35→20:54)
[2016-05-26] MEDS: PANTOPRAZOLE 40 MG TAB PO SCH (06:35)
[2016-05-26] MEDS: METHYLPREDNISOLONE 125 MG/2 ML VIAL IV SCH ×4 (08:44→23:42)
[2016-05-26] MEDS: Celecoxib 200 MG CAP PO SCH ×2 (08:44→17:23)
[2016-05-26] MEDS: DICLOFENAC 1% TOPICAL GEL 100 GM TUBE TOP SCH ×4 (08:46→20:52)
[2016-05-26] MEDS: SERTRALINE HCL 100 MG TAB PO SCH (08:47)
[2016-05-26] MEDS: ALLOPURINOL 100 MG TAB PO SCH (08:47)
[2016-05-26] MEDS: TRAMADOL HCL 50 MG TAB PO SCH ×3 (08:55→23:41)
--- NOTE | 2016-05-26 10:44 | GENMEDPROG ---
Subjective Note: Pleasant 75-year-old female admitted to our facility with a CHRONIC OBSTRUCTIVE PULMONARY DISEASE exacerbation found to be growing out Pseudomonas aeruginosa in her sputum. When I walked in the room she seemed very confused but was trying to get out of the bed on her own. Nursing quickly responded and helped reorient the patient. Notes Reviewed: Yes Events from last night noted and discussed with Clinical Staff Current Medication List: Reviewed Currently: Reports: Cough, Wheezing, AMANDA, SOB DVT Prophylaxis: Yes - Physical Examination Vital Signs and I&O: Last Vital Signs Temp 98.3 F 05/26/16 08:09 Pulse 65 05/26/16 09:11 Resp 24 05/26/16 09:11 BP 123/58 L 05/26/16 08:09 Pulse Ox 95 05/26/16 09:11 Oxygen Pulse Oxygen Saturation 95 O2 Device Nasal Cannula Oxygen Flow Rate 3 Fraction of Inspired Oxygen ( 35 FIO2) Intake & Output 05/23/16 05/24/16 05/25/16 05/26/16 23:59 23:59 23:59 23:59 Intake Total 323 547 5183 1856 Output Total 1150 2100 2150 1200 Balance -390 -1490 -763 656 Patient's weight 65.68 kg 66.043 kg General: Alert, Oriented x3, No acute distress, Well appearing, Well nourished HEENT: Normal (Normocephalic, atraumatic;EOMI.Sclera white, Nares patent, without discharge or bleeding. No oropharyngeal lesions or erythema. Mucous membranes are dry.) Neck: Non-tender, Full range of motion, Normal Trachea alignment, Normal inspection (No cervical lymphadenopathy. No supraclavicular lymphadenopathy.), No Masses palpable, Supple Lymphatics: Normal (No lymph node swelling or pain.) Respiratory: Accessory Muscle Use, Diminished, Tachypnea, Wheezes, Other ( UNABLE TO SPEAK CLEARLY) Cardiovascular: Regular rate and rhythm (No bradycardia or tachycardia), Normal S1, No Gallops,Rubs/Murmurs, Normal S2, Good Pedal Pulses (DP pulses 2+ bilaterally) GI: Normal bowel sounds (normal active sounds), Soft (non-distended), Non tender , No hepatospenomegaly, No masses Extremities/Musculoskeletal: Normal pulses (DP pulses 2+ bilaterally) Skin: Warm,Dry and Intact, No rashes, No significant lesion Neurological: Strength at 5/5 X4 ext (Motor 5/5 throughout.), Normal tone, Cranial nerves 3-12 NL ( 2-12 grossly intact.) Psych/Mental Status: Appropriate, Normal Affect Lab/DI/Studies Reviewed: Microbiology 05/23/16 08:00 Sputum Gram Stain - Final 05/23/16 08:00 Sputum Sputum Culture - Final Pseudomonas aeruginosa multidrug resistant Abnormal Lab Results 05/25/16 05/25/16 05/25/16 11:15 15:56 20:17 RBC Hgb Hct Plt Count Sodium Potassium Chloride BUN Creatinine Estimated GFR (MDRD) Glucose POC Capillary Glucose 213 H 214 H 253 H Calculated Osmolality Calcium 05/25/16 05/26/16 05/26/16 21:39 04:35 04:35 RBC 4.02 L Hgb 11.7 L Hct 35.3 L Plt Count 125 L Sodium 125 L 130 L Potassium 5.3 H Chloride 87 L 90 L BUN 60 H 57 H Creatinine 1.20 H 1.20 H Estimated GFR (MDRD) 44 L 44 L Glucose 264 H 251 H POC Capillary Glucose Calculated Osmolality 268 L Calcium 8.2 L 05/26/16 06:07 RBC Hgb Hct Plt Count Sodium Potassium Chloride BUN Creatinine Estimated GFR (MDRD) Glucose POC Capillary Glucose 270 H Calculated Osmolality Calcium - Assessment (1) Acute and chronic respiratory failure with hypercapnia Acute J96.22 - ACUTE AND CHRONIC RESPIRATORY FAILURE WITH HYPERCAPNIA Comment/Plan: Dyspnea improved the improving. She is growing out Pseudomonas aeruginosa in her sputum and has never had that noted before. I believe that this is causing an exacerbation of her COPD. Chest x-rays thus far have not shown any pneumonia and patient has a creatinine of 1.2. Will hydrate her and if she improves consider a CT scan with contrast if possible otherwise consider a CT scan without contrast. (2) COPD with acute lower respiratory infection Acute J44.0 - CHRONIC OBSTRUCTIVE PULMON DISEASE W ACUTE LOWER RESP INFCT Comment/Plan: Patient's current antibiotic regimen had to be adjusted as she has a multidrug resistant Pseudomonas in her sputum. (3) Pseudomonas respiratory infection Acute J98.8 - OTHER SPECIFIED RESPIRATORY DISORDERS; A49.8 - OTHER BACTERIAL INFECTIONS OF UNSPECIFIED SITE Comment/Plan: See above antibiotics adjusted. (4) DNR (do not resuscitate) Acute Z66 - DO NOT RESUSCITATE Comment/Plan: Presents with [facility] DNR form. Discussed form and code status with patient 05/23/16: patient states she wants to continue with DNR code status. (5) Type 2 diabetes mellitus with hyperglycemia Acute E11.65 - TYPE 2 DIABETES MELLITUS WITH HYPERGLYCEMIA Qualifiers: Diabetes mellitus long-term insulin use: with technician terminal and repeater use Qualified Code( s): E11.65 - Type 2 diabetes mellitus with hyperglycemia; Z79.4 - FPC ( current) use of insulin Comment/Plan: Plan: Lower home dose of long-acting insulin. Check FSBS qac and hs. Check a1c and urine microalbumin. (6) Chronic abdominal pain Chronic R10.9 - UNSPECIFIED ABDOMINAL PAIN; G89.29 - OTHER CHRONIC PAIN Comment/Plan: Patient reports she has had abdominal pain x 1 year but it has not been investigated. Plan: Advised patient to make a separate appointment with her primary care physician to address her chronic abdominal pain. (7) Chronic diastolic (congestive) heart failure Chronic I50.32 - CHRONIC DIASTOLIC (CONGESTIVE) HEART FAILURE Comment/Plan: Has CHRONIC but not acute diastolic CHF. Plan: Beta greg, JON inhibitor as tolerated. Home medications. Monitor for fluid overload. - Plan Adjust antibiotics as above monitor closely. Consider further imaging to determine if there is a pneumonia. Disposition Plan: Likely discharge to skilled facility when stable to complete antibiotic course Case Care Discussed with: Patient, Nursing Staff Education/Counseling Given To: Patient Education/Counseling Given Regarding: Diagnosis, Treatment, Prognosis, Follow Up , Disposition Plan Total Time: 45 minutes Critical Care: No Couseling Time (>50% in counseling/coordination): No
[2016-05-26] MEDS: PIPERACILLIN AND TAZOBACTAM 3.375 GM in D5W 100 ML IV SCH ×3 (12:18→23:42)
[2016-05-26] MEDS: POTASSIUM CHLORIDE 20 MEQ TAB PO SCH (12:20)
[2016-05-26] MEDS: IRON POLYSACCHARIDE CAP PO SCH (12:20)
[2016-05-26] MEDS: INSULIN DETEMIR 100 UNITS/ML PEN SQ SCH (20:51)
[2016-05-26] MEDS: FENTANYL 12 MCG PATCH TOP SCH (20:51)
[2016-05-26] MEDS: REMOVE PATCH MAR ALERT SCH (20:52)
[2016-05-26] MEDS ORDERED: METHYLPREDNISOLONE 125 MG/2 ML VIAL IV ONE (21:46)
[2016-05-26] MEDS: ALBUTEROL 0.083% 3 ML NEB NEB PRN (21:48)
[2016-05-26] MEDS ORDERED: Albuterol/Ipratropium Neb 3 ML NEB NEB ONE (22:05)
[2016-05-27] MEDS: Albuterol/Ipratropium Neb 3 ML NEB NEB SCH ×4 (01:58→20:30)
[2016-05-27] MEDS: PIPERACILLIN AND TAZOBACTAM 3.375 GM in D5W 100 ML IV SCH ×3 (05:16→17:28)
[2016-05-27] MEDS: GABAPENTIN 100 MG CAP PO SCH ×3 (05:16→21:12)
[2016-05-27] MEDS: PANTOPRAZOLE 40 MG TAB PO SCH (05:16)
[2016-05-27] MEDS: REGULAR INSULIN 100 UNITS/ML - 3 ML VIAL SQ SCH ×4 (05:29→20:36)
[2016-05-27 05:31] LABS: MPV 8.2 fL (7.4-10.4)
[2016-05-27 05:43] LABS: BLOOD UREA NITROGEN 56 MG/DL (7-17); CALCIUM 8.4 MG/DL (8.4-10.2); CALCULATED OSMOLALITY 284 MOs/Kg (270-290); CHLORIDE 97 mEq/L (98-107); GLUCOSE 280 MG/DL (70-99); SODIUM LEVEL 134 mEq/L (137-146)
[2016-05-27] MEDS: POTASSIUM CHLORIDE 20 MEQ TAB PO SCH (07:22)
[2016-05-27] MEDS: Celecoxib 200 MG CAP PO SCH ×2 (07:35→17:27)
[2016-05-27] MEDS: TRAMADOL HCL 50 MG TAB PO SCH ×2 (07:36→17:26)
[2016-05-27] MEDS: SERTRALINE HCL 100 MG TAB PO SCH (07:38)
[2016-05-27] MEDS: ALLOPURINOL 100 MG TAB PO SCH (07:38)
[2016-05-27] MEDS: METHYLPREDNISOLONE 125 MG/2 ML VIAL IV SCH ×2 (07:40→17:27)
[2016-05-27] MEDS: DICLOFENAC 1% TOPICAL GEL 100 GM TUBE TOP SCH ×4 (07:41→21:13)
[2016-05-27] MEDS: NS 1,000 ML IV SCH ×2 (07:42→21:19)
[2016-05-27] MEDS ORDERED: FUROSEMIDE 40 MG/4 ML VIAL IV ONE (08:00)
--- NOTE | 2016-05-27 09:00 | DIRPT ---
CLINICAL DATA: Hypoxia EXAM: PORTABLE CHEST 1 VIEW COMPARISON: May 25, 2016 FINDINGS: There is no edema or consolidation. Heart is borderline prominent with pulmonary vascularity within normal limits. No adenopathy. There is atherosclerotic calcification in the aorta. The patient has had several kyphoplasty procedures in the lower thoracic spine. There is arthropathy in each shoulder with chronic rotator cuff tears bilaterally. IMPRESSION: No edema or consolidation. Stable cardiac silhouette. Electronically Signed By: Odell Sinha III, M.D. On: 05/27/2016 08:58
[2016-05-27 10:00] LABS: ALLEN'S TEST PASS; TCO2 32.5 MMOL/L (23-27)
[2016-05-27 10:01] LABS: ABG Draw Site Right Radial
[2016-05-27 10:02] LABS: ABG Draw Tech INGSH
[2016-05-27] MEDS: IRON POLYSACCHARIDE CAP PO SCH (11:33)
[2016-05-27] MEDS ORDERED: Pharmacy Review for Metformin - IV Contrast Given SCH (13:00)
[2016-05-27] MEDS ORDERED: LIDOCAINE 1% 30 ML VIAL (PRESERVATIVE FREE) ONE (14:20)
--- NOTE | 2016-05-27 15:14 | DIRPT ---
CLINICAL DATA: Shortness of breath. Chest pain. History of CHF and COPD. EXAM: CT ANGIOGRAPHY CHEST WITH CONTRAST TECHNIQUE: Multidetector CT imaging of the chest was performed using the standard protocol during bolus administration of intravenous contrast. Multiplanar CT image reconstructions and MIPs were obtained to evaluate the vascular anatomy. CONTRAST: 80 cc Isovue 370 COMPARISON: Chest CT 02/22/2016, 05/27/2016 chest x-ray and multiple prior studies FINDINGS: Heart: The heart is enlarged. There is dense atherosclerotic calcification of the coronary arteries. Vascular structures: Pulmonary arteries are well opacified. There is no evidence for acute pulmonary embolus. There is atherosclerotic calcification of the thoracic aorta. No aneurysm. Pulmonary artery segments are enlarged, measuring 2.4 cm on the left and 2.6 cm on the right. Mediastinum/thyroid: Mildly heterogeneous thyroid gland. Pretracheal lymph node is 1.8 cm. No hilar adenopathy. The esophagus has a normal appearance. Lungs/Airways: Emphysematous changes are identified in the lungs. Left basilar scarring and atelectasis is noted. No consolidations or suspicious nodules. No pleural effusions. Upper abdomen: Study quality is degraded by patient motion suspect right adrenal nodule, 1.9 cm and not further characterized. Left renal cyst midpole region. Tortuous abdominal aorta partially imaged.. Chest wall/osseous structures: Numerous wedge compression fractures in previous kyphoplasty changes. These are stable compared with previous CT exam. Review of the MIP images confirms the above findings. IMPRESSION: 1. Technically adequate exam showing no acute pulmonary embolus. 2. Cardiomegaly and significant atherosclerotic coronary artery disease. 3. Stable enlargement of pulmonary arteries. 4. Atherosclerotic calcification of the thoracic aorta. 5. Emphysema. 6. Left basilar scarring and atelectasis. 7. Right adrenal nodule shows greater than 3 year stability, consistent benign process. Electronically Signed By: Iona Walker M.D. On: 05/27/2016 15:12
--- NOTE | 2016-05-27 15:50 | DIRPT ---
CLINICAL DATA: 75-year-old female in need of durable central venous access for IV antibiotics EXAM: CENTRAL VENOUS CATHETER FLUOROSCOPY TIME: 6 seconds TECHNIQUE: The right arm was prepped with chlorhexidine, draped in the usual sterile fashion using maximum barrier technique (cap and mask, sterile gown, sterile gloves, large sterile sheet, hand hygiene and cutaneous antiseptic). Local anesthesia was attained by infiltration with 1% lidocaine. Ultrasound demonstrated patency of the right basilic vein, and this was documented with an image. Under real-time ultrasound guidance, this vein was accessed with a 21 gauge micropuncture needle and image documentation was performed. The needle was exchanged over a guidewire for a peel-away sheath through which a 37 cm 5 Cymraes single lumen power injectable PICC was advanced, and positioned with its tip at the lower SVC/right atrial junction. Fluoroscopy during the procedure and fluoro spot radiograph confirms appropriate catheter position. The catheter was flushed, secured to the skin with Prolene sutures, and covered with a sterile dressing. COMPLICATIONS: None. The patient tolerated the procedure well. IMPRESSION: Successful placement of a right arm single-lumen power PICC with sonographic and fluoroscopic guidance. The catheter is ready for use. Signed, Gael Gongora MD [facility] Electronically Signed By: Gael Gongora M.D. On: 05/27/2016 15:48
--- NOTE | 2016-05-27 18:01 | GENMEDPROG ---
Subjective Note: Patient doing extremely poorly. She continues to be hypoxemic. Having difficulty improving her CO2 status and her pH is low today. She was positive for a D-dimer and therefore she had a CTA of the chest with fortunately did not show any pulmonary embolism or any other significant when you pathology. Her lung images were clear on CT scan. Notes Reviewed: Yes Events from last night noted and discussed with Clinical Staff Current Medication List: Reviewed Currently: Reports: Cough, Wheezing, AMANDA, SOB DVT Prophylaxis: Yes - Physical Examination Vital Signs and I&O: Last Vital Signs Temp 96.3 F L 05/27/16 15:50 Pulse 123 H 05/27/16 15:50 Resp 13 05/27/16 16:14 BP 139/63 05/27/16 15:50 Pulse Ox 100 05/27/16 16:15 Oxygen Pulse Oxygen Saturation 100 O2 Device BiPAP Oxygen Flow Rate 3 Fraction of Inspired Oxygen ( 30 FIO2) Intake & Output 05/24/16 05/25/16 05/26/16 05/27/16 23:59 23:59 23:59 23:59 Intake Total 610 1387 3531 2142 Output Total 2100 2150 2200 2300 Balance -1490 -763 1331 -158 Patient's weight 66.043 kg General: Alert, Oriented x3, No acute distress, Well appearing, Well nourished HEENT: Normal (Normocephalic, atraumatic;EOMI.Sclera white, Nares patent, without discharge or bleeding. No oropharyngeal lesions or erythema. Mucous membranes are dry.) Neck: Non-tender, Full range of motion, Normal Trachea alignment, Normal inspection (No cervical lymphadenopathy. No supraclavicular lymphadenopathy.), No Masses palpable, Supple Lymphatics: Normal (No lymph node swelling or pain.) Respiratory: Accessory Muscle Use, Diminished, Tachypnea, Wheezes, Other ( UNABLE TO SPEAK CLEARLY) Cardiovascular: Regular rate and rhythm (No bradycardia or tachycardia), Normal S1, No Gallops,Rubs/Murmurs, Normal S2, Good Pedal Pulses (DP pulses 2+ bilaterally) GI: Normal bowel sounds (normal active sounds), Soft (non-distended), Non tender , No hepatospenomegaly, No masses Extremities/Musculoskeletal: Normal pulses (DP pulses 2+ bilaterally) Skin: Warm,Dry and Intact, No rashes, No significant lesion Neurological: Strength at 5/5 X4 ext (Motor 5/5 throughout.), Normal tone, Cranial nerves 3-12 NL ( 2-12 grossly intact.) Psych/Mental Status: Appropriate, Normal Affect Lab/DI/Studies Reviewed: Abnormal Lab Results 05/26/16 05/27/16 05/27/16 20:54 04:50 04:50 RBC 3.75 L Hgb 10.9 L Hct 32.8 L RDW 14.6 H Plt Count 111 L D-Dimer Quant (PE/DVT) pH pCO2 pO2 HCO3 Total CO2 Sodium 134 L Potassium 5.5 H Chloride 97 L BUN 56 H Creatinine 1.10 H Estimated GFR (MDRD) 49 L Glucose 280 H POC Capillary Glucose 186 H Ljk-O-Fobikapbzyv Pept 05/27/16 05/27/16 05/27/16 05:28 09:56 10:05 RBC Hgb Hct RDW Plt Count D-Dimer Quant (PE/DVT) pH 7.280 L pCO2 65.0 H pO2 66.0 L HCO3 30.5 H Total CO2 32.5 H Sodium Potassium Chloride BUN Creatinine Estimated GFR (MDRD) Glucose POC Capillary Glucose 254 H Pcp-K-Ysalxwxcqot Pept 2760 H 05/27/16 05/27/16 05/27/16 10:05 11:35 15:58 RBC Hgb Hct RDW Plt Count D-Dimer Quant (PE/DVT) 936 H pH pCO2 pO2 HCO3 Total CO2 Sodium Potassium Chloride BUN Creatinine Estimated GFR (MDRD) Glucose POC Capillary Glucose 210 H 175 H Kja-Q-Dsjtztovbkr Pept EXAM: CT ANGIOGRAPHY CHEST WITH CONTRAST TECHNIQUE: Multidetector CT imaging of the chest was performed using the standard protocol during bolus administration of intravenous contrast. Multiplanar CT image reconstructions and MIPs were obtained to evaluate the vascular anatomy. CONTRAST: 80 cc Isovue 370 COMPARISON: Chest CT 02/22/2016, 05/27/2016 chest x-ray and multiple prior studies FINDINGS: Heart: The heart is enlarged. There is dense atherosclerotic calcification of the coronary arteries. Vascular structures: Pulmonary arteries are well opacified. There is no evidence for acute pulmonary embolus. There is atherosclerotic calcification of the thoracic aorta. No aneurysm. Pulmonary artery segments are enlarged, measuring 2.4 cm on the left and 2.6 cm on the right. Mediastinum/thyroid: Mildly heterogeneous thyroid gland. Pretracheal lymph node is 1.8 cm. No hilar adenopathy. The esophagus has a normal appearance. Lungs/Airways: Emphysematous changes are identified in the lungs. Left basilar scarring and atelectasis is noted. No consolidations or suspicious nodules. No pleural effusions. Upper abdomen: Study quality is degraded by patient motion suspect right adrenal nodule, 1.9 cm and not further characterized. Left renal cyst midpole region. Tortuous abdominal aorta partially imaged.. Chest wall/osseous structures: Numerous wedge compression fractures in previous kyphoplasty changes. These are stable compared with previous CT exam. Review of the MIP images confirms the above findings. IMPRESSION: 1. Technically adequate exam showing no acute pulmonary embolus. 2. Cardiomegaly and significant atherosclerotic coronary artery disease. 3. Stable enlargement of pulmonary arteries. 4. Atherosclerotic calcification of the thoracic aorta. 5. Emphysema. 6. Left basilar scarring and atelectasis. 7. Right adrenal nodule shows greater than 3 year stability, consistent benign process. Electronically Signed By: Iona Walker M.D. On: 05/27/2016 15:12 - Assessment (1) Acute and chronic respiratory failure with hypercapnia Acute J96.22 - ACUTE AND CHRONIC RESPIRATORY FAILURE WITH HYPERCAPNIA Comment/Plan: Creatinine has improved to the point were we can obtain a CT scan and did so today please see results above. No evidence of acute pneumonia. She has severe CHRONIC OBSTRUCTIVE PULMONARY DISEASE exacerbation with hypercarbia. I believe patient would be of appropriate hospice candidate. (2) COPD with acute lower respiratory infection Acute J44.0 - CHRONIC OBSTRUCTIVE PULMON DISEASE W ACUTE LOWER RESP INFCT Comment/Plan: Patient's current antibiotic regimen had to be adjusted as she has a multidrug resistant Pseudomonas in her sputum. (3) Pseudomonas respiratory infection Acute J98.8 - OTHER SPECIFIED RESPIRATORY DISORDERS; A49.8 - OTHER BACTERIAL INFECTIONS OF UNSPECIFIED SITE Comment/Plan: See above antibiotics adjusted. (4) DNR (do not resuscitate) Acute Z66 - DO NOT RESUSCITATE Comment/Plan: Presents with [facility] DNR form. Discussed form and code status with patient 05/23/16: patient states she wants to continue with DNR code status. (5) Type 2 diabetes mellitus with hyperglycemia Acute E11.65 - TYPE 2 DIABETES MELLITUS WITH HYPERGLYCEMIA Qualifiers: Diabetes mellitus shelter insulin use: with shelter use Qualified Code( s): E11.65 - Type 2 diabetes mellitus with hyperglycemia; Z79.4 - meterman ( current) use of insulin Comment/Plan: Plan: Lower home dose of long-acting insulin. Check FSBS qac and hs. Check a1c and urine microalbumin. (6) Chronic abdominal pain Chronic R10.9 - UNSPECIFIED ABDOMINAL PAIN; G89.29 - OTHER CHRONIC PAIN Comment/Plan: Patient reports she has had abdominal pain x 1 year but it has not been investigated. Plan: Advised patient to make a separate appointment with her primary care physician to address her chronic abdominal pain. (7) Chronic diastolic (congestive) heart failure Chronic I50.32 - CHRONIC DIASTOLIC (CONGESTIVE) HEART FAILURE Comment/Plan: Has CHRONIC but not acute diastolic CHF. Plan: Beta greg, JON inhibitor as tolerated. Home medications. Monitor for fluid overload. - Plan Patient doing extremely poorly. Her mentation is very poor. I have not seen any family members with which to discuss her overall status. I believe patient would benefit from hospice care. Would like to opportunity to talk with patient or a family member prior to consulting them. Disposition Plan: May need hospice at discharge versus alf facility. Case Care Discussed with: Nursing Staff Education/Counseling Given To: Patient Education/Counseling Given Regarding: Diagnosis, Treatment Total Time: 45 minutes Critical Care: Yes Couseling Time (>50% in counseling/coordination): No
[2016-05-27] MEDS: INSULIN DETEMIR 100 UNITS/ML PEN SQ SCH (21:12)
[2016-05-28] MEDS: PIPERACILLIN AND TAZOBACTAM 3.375 GM in D5W 100 ML IV SCH ×5 (00:35→23:19)
[2016-05-28] MEDS: METHYLPREDNISOLONE 125 MG/2 ML VIAL IV SCH ×4 (00:35→23:19)
[2016-05-28] MEDS: TRAMADOL HCL 50 MG TAB PO SCH ×4 (00:49→21:07)
[2016-05-28] MEDS: Albuterol/Ipratropium Neb 3 ML NEB NEB SCH ×4 (02:14→19:42)
[2016-05-28 05:30] LABS: MPV 7.7 fL (7.4-10.4)
[2016-05-28] MEDS: REGULAR INSULIN 100 UNITS/ML - 3 ML VIAL SQ SCH ×4 (05:50→21:06)
[2016-05-28] MEDS: GABAPENTIN 100 MG CAP PO SCH ×3 (05:50→21:07)
[2016-05-28] MEDS: PANTOPRAZOLE 40 MG TAB PO SCH (05:50)
[2016-05-28 05:53] LABS: BLOOD UREA NITROGEN 49 MG/DL (7-17); CALCIUM 8.2 MG/DL (8.4-10.2); CALCULATED OSMOLALITY 288 MOs/Kg (270-290); CHLORIDE 98 mEq/L (98-107); GLUCOSE 253 MG/DL (70-99); SODIUM LEVEL 138 mEq/L (137-146)
[2016-05-28 06:13] LABS: ALLEN'S TEST PASS; BEb 5.2 (+/- 2); TCO2 34.8 MMOL/L (23-27)
[2016-05-28 06:14] LABS: ABG Draw Site Right Radial
[2016-05-28] MEDS: ALLOPURINOL 100 MG TAB PO SCH (08:28)
[2016-05-28] MEDS: Celecoxib 200 MG CAP PO SCH ×2 (08:28→17:29)
[2016-05-28] MEDS: SERTRALINE HCL 100 MG TAB PO SCH (08:29)
[2016-05-28] MEDS: DICLOFENAC 1% TOPICAL GEL 100 GM TUBE TOP SCH ×4 (09:08→21:08)
[2016-05-28] MEDS: NS 1,000 ML IV SCH (10:23)
[2016-05-28] MEDS: IRON POLYSACCHARIDE CAP PO SCH (12:36)
--- NOTE | 2016-05-28 16:32 | GENMEDPROG ---
Chief Complaint: Shortness breath is improved requesting nystatin Mucinex Notes Reviewed: Yes Events from last night noted and discussed with Clinical Staff Current Medication List: Reviewed Currently: Reports: Cough, Wheezing, AMANDA, SOB DVT Prophylaxis: Yes - Physical Examination Vital Signs and I&O: Last Vital Signs Temp 97.5 F 05/28/16 11:20 Pulse 97 05/28/16 16:00 Resp 18 05/28/16 11:20 BP 157/95 05/28/16 11:20 Pulse Ox 96 05/28/16 11:20 Oxygen Pulse Oxygen Saturation 96 O2 Device Nasal Cannula Oxygen Flow Rate 3 Fraction of Inspired Oxygen ( 30 FIO2) Intake & Output 05/25/16 05/26/16 05/27/16 05/28/16 23:59 23:59 23:59 23:59 Intake Total 1387 3531 2142 1503 Output Total 2150 2200 2800 950 Balance -763 1331 -658 553 General: Alert, Oriented x3, No acute distress, Well appearing, Well nourished HEENT: Normal (Normocephalic, atraumatic;EOMI.Sclera white, Nares patent, without discharge or bleeding. No oropharyngeal lesions or erythema. Mucous membranes are dry.) Neck: Non-tender, Full range of motion, Normal Trachea alignment, Normal inspection (No cervical lymphadenopathy. No supraclavicular lymphadenopathy.), No Masses palpable, Supple Lymphatics: Normal (No lymph node swelling or pain.) Respiratory: Accessory Muscle Use, Diminished, Tachypnea, Wheezes, Other ( UNABLE TO SPEAK CLEARLY) Cardiovascular: Regular rate and rhythm (No bradycardia or tachycardia), Normal S1, No Gallops,Rubs/Murmurs, Normal S2, Good Pedal Pulses (DP pulses 2+ bilaterally) GI: Normal bowel sounds (normal active sounds), Soft (non-distended), Non tender , No hepatospenomegaly, No masses Extremities/Musculoskeletal: Normal pulses (DP pulses 2+ bilaterally) Skin: Warm,Dry and Intact, No rashes, No significant lesion Neurological: Strength at 5/5 X4 ext (Motor 5/5 throughout.), Normal tone, Cranial nerves 3-12 NL ( 2-12 grossly intact.) Psych/Mental Status: Appropriate, Normal Affect Lab/DI/Studies Reviewed: 05/28/16 04:45 05/28/16 04:45 Laboratory Results - last 24 hr 05/27/16 05/28/16 05/28/16 20:28 04:45 04:45 WBC 4.3 RBC 3.67 L Hgb 10.7 L Hct 31.9 L MCV 87 MCH 29.1 MCHC 33.6 RDW 14.5 Plt Count 106 L MPV 7.7 Puncture Site pH pCO2 pO2 HCO3 Total CO2 Base Excess FiO2 % Mode BiPAP Specimen Drawn By Sodium 138 Potassium 4.3 Chloride 98 Carbon Dioxide 33 Anion Gap 11 BUN 49 H Creatinine 1.10 H Estimated GFR (MDRD) 49 L Glucose 253 H POC Capillary Glucose 136 H Calculated Osmolality 288 Calcium 8.2 L 05/28/16 05/28/16 05/28/16 05:02 05:57 11:18 WBC RBC Hgb Hct MCV MCH MCHC RDW Plt Count MPV Puncture Site Right radial pH 7.340 L pCO2 61.0 H pO2 97.0 HCO3 32.9 H Total CO2 34.8 H Base Excess 5.2 H FiO2 % 30 Mode BiPAP 12/6 Specimen Drawn By Whitr Sodium Potassium Chloride Carbon Dioxide Anion Gap BUN Creatinine Estimated GFR (MDRD) Glucose POC Capillary Glucose 274 H 234 H Calculated Osmolality Calcium - Assessment (1) Acute and chronic respiratory failure with hypercapnia Acute J96.22 - ACUTE AND CHRONIC RESPIRATORY FAILURE WITH HYPERCAPNIA Comment/Plan: Creatinine has improved to the point were we can obtain a CT scan and did so today please see results above. No evidence of acute pneumonia. She has severe CHRONIC OBSTRUCTIVE PULMONARY DISEASE exacerbation with hypercarbia. I believe patient would be of appropriate hospice candidate. (2) COPD with acute lower respiratory infection Acute J44.0 - CHRONIC OBSTRUCTIVE PULMON DISEASE W ACUTE LOWER RESP INFCT Comment/Plan: Patient's current antibiotic regimen had to be adjusted as she has a multidrug resistant Pseudomonas in her sputum. (3) Type 2 diabetes mellitus with hyperglycemia Acute E11.65 - TYPE 2 DIABETES MELLITUS WITH HYPERGLYCEMIA Qualifiers: Diabetes mellitus terminal worker insulin use: with shelter use Qualified Code( s): E11.65 - Type 2 diabetes mellitus with hyperglycemia; Z79.4 - intermediate frame tender ( current) use of insulin Comment/Plan: Plan: Lower home dose of long-acting insulin. Check FSBS qac and hs. Check a1c and urine microalbumin. (4) Chronic diastolic (congestive) heart failure Chronic I50.32 - CHRONIC DIASTOLIC (CONGESTIVE) HEART FAILURE Comment/Plan: Has CHRONIC but not acute diastolic CHF. Plan: Beta greg, JON inhibitor as tolerated. Home medications. Monitor for fluid overload. (5) Ambulatory dysfunction Acute R26.2 - DIFFICULTY IN WALKING, NOT ELSEWHERE CLASSIFIED Comment/Plan: Physical therapy seeing patient and walk 30 feet today. She appears to be motivated not to go to a [facility] but rather home. (6) Anemia Acute D64.9 - ANEMIA, UNSPECIFIED Qualifiers: Anemia type: unspecified type Qualified Code(s): D64.9 - Anemia, unspecified Comment/Plan: Iron B12 folic acid studies have not shown definite iron deficiency. Will monitor during hospitalization. Hemoglobin is Not low enough to warrant transfusion. Disposition Plan: May need hospice at discharge versus prison facility. Case Care Discussed with: Patient, Nursing Staff, Resource Management Education/Counseling Given To: Patient Education/Counseling Given Regarding: Diagnosis, Treatment Total Time: 38 min Critical Care: No Code: 11438 (12+)
[2016-05-28] MEDS: INSULIN DETEMIR 100 UNITS/ML PEN SQ SCH (21:06)
[2016-05-28] MEDS: NYSTATIN ORAL SUSP 5 ML PO SCH (21:07)
[2016-05-28] MEDS: GUAIFENESIN 600 MG LA TAB PO SCH (21:07)
[2016-05-28] MEDS: MAGIC MOUTHWASH 180 ML ORAL SUSP PO SCH (21:07)
[2016-05-29] MEDS: Albuterol/Ipratropium Neb 3 ML NEB NEB SCH ×4 (01:55→20:23)
[2016-05-29 05:29] LABS: MPV 8.1 fL (7.4-10.4)
[2016-05-29 05:43] LABS: BLOOD UREA NITROGEN 39 MG/DL (7-17); CALCIUM 8.4 MG/DL (8.4-10.2); CALCULATED OSMOLALITY 285 MOs/Kg (270-290); CHLORIDE 101 mEq/L (98-107); GLUCOSE 184 MG/DL (70-99); SODIUM LEVEL 141 mEq/L (137-146)
[2016-05-29] MEDS: PANTOPRAZOLE 40 MG TAB PO SCH (06:14)
[2016-05-29] MEDS: TRAMADOL HCL 50 MG TAB PO SCH ×3 (06:14→20:33)
[2016-05-29] MEDS: GABAPENTIN 100 MG CAP PO SCH ×3 (06:14→20:33)
[2016-05-29] MEDS: REGULAR INSULIN 100 UNITS/ML - 3 ML VIAL SQ SCH ×4 (06:15→20:31)
[2016-05-29] MEDS: PIPERACILLIN AND TAZOBACTAM 3.375 GM in D5W 100 ML IV SCH ×2 (06:15→12:00)
[2016-05-29] MEDS: Celecoxib 200 MG CAP PO SCH ×2 (09:19→16:42)
[2016-05-29] MEDS: SERTRALINE HCL 100 MG TAB PO SCH (09:20)
[2016-05-29] MEDS: GUAIFENESIN 600 MG LA TAB PO SCH ×2 (09:20→20:32)
[2016-05-29] MEDS: ALLOPURINOL 100 MG TAB PO SCH (09:20)
[2016-05-29] MEDS: METHYLPREDNISOLONE 125 MG/2 ML VIAL IV SCH (09:20)
[2016-05-29] MEDS: MAGIC MOUTHWASH 180 ML ORAL SUSP PO SCH ×4 (09:21→20:32)
[2016-05-29] MEDS: NYSTATIN ORAL SUSP 5 ML PO SCH ×4 (09:30→20:35)
[2016-05-29] MEDS: DICLOFENAC 1% TOPICAL GEL 100 GM TUBE TOP SCH ×4 (09:31→20:33)
--- NOTE | 2016-05-29 10:32 | GENMEDPROG ---
Chief Complaint: LESS SOB NEEDS TO GET OOB SORE MOUTH BETTER Notes Reviewed: Yes Events from last night noted and discussed with Clinical Staff Current Medication List: Reviewed Currently: Reports: Cough, Wheezing, AMANDA, SOB DVT Prophylaxis: Yes - Physical Examination Vital Signs and I&O: Last Vital Signs Temp 97.5 F 05/29/16 07:31 Pulse 105 05/29/16 08:00 Resp 20 05/29/16 07:31 BP 168/94 05/29/16 07:31 Pulse Ox 97 05/29/16 08:00 Oxygen Pulse Oxygen Saturation 97 O2 Device Nasal Cannula Oxygen Flow Rate 3 Fraction of Inspired Oxygen ( 30 FIO2) Intake & Output 05/26/16 05/27/16 05/28/16 05/29/16 23:59 23:59 23:59 23:59 Intake Total 3531 2142 2940 572 Output Total 2200 2800 950 1100 Balance 2521 -838 1989 4 Patient's weight 66.043 kg General: Alert, Oriented x3, No acute distress, Well appearing, Well nourished HEENT: Normal (Normocephalic, atraumatic;EOMI.Sclera white, Nares patent, without discharge or bleeding. No oropharyngeal lesions or erythema. Mucous membranes are dry.) Neck: Non-tender, Full range of motion, Normal Trachea alignment, Normal inspection (No cervical lymphadenopathy. No supraclavicular lymphadenopathy.), No Masses palpable, Supple Lymphatics: Normal (No lymph node swelling or pain.) Respiratory: Accessory Muscle Use, Diminished, Rhonchi. negative: Rales, Tachypnea, Wheezes Cardiovascular: Regular rate and rhythm (No bradycardia or tachycardia), Normal S1, No Gallops,Rubs/Murmurs, Normal S2, Good Pedal Pulses (DP pulses 2+ bilaterally) GI: Normal bowel sounds (normal active sounds), Soft (non-distended), Non tender , No hepatospenomegaly, No masses Extremities/Musculoskeletal: Normal pulses (DP pulses 2+ bilaterally) Skin: Warm,Dry and Intact, No rashes, No significant lesion Neurological: Strength at 5/5 X4 ext (Motor 5/5 throughout.), Normal tone, Cranial nerves 3-12 NL ( 2-12 grossly intact.) Psych/Mental Status: Appropriate, Normal Affect Lab/DI/Studies Reviewed: 05/29/16 04:45 01/05/17 04:45 Laboratory Results - last 24 hr 05/28/16 05/28/16 05/28/16 11:18 16:39 20:45 WBC RBC Hgb Hct MCV MCH MCHC RDW Plt Count MPV Sodium Potassium Chloride Carbon Dioxide Anion Gap BUN Creatinine Estimated GFR (MDRD) Glucose POC Capillary Glucose 234 H 348 H 262 H Calculated Osmolality Calcium Stool Occult Blood 05/29/16 05/29/16 05/29/16 04:45 04:45 05:18 WBC 6.3 RBC 3.90 L Hgb 11.3 L Hct 34.1 L MCV 87 MCH 29.0 MCHC 33.2 RDW 14.6 H Plt Count 128 L MPV 8.1 Sodium 141 Potassium 4.2 Chloride 101 Carbon Dioxide 34 H Anion Gap 10 BUN 39 H Creatinine 1.10 H Estimated GFR (MDRD) 49 L Glucose 184 H POC Capillary Glucose 176 H Calculated Osmolality 285 Calcium 8.4 Stool Occult Blood 05/29/16 08:55 WBC RBC Hgb Hct MCV MCH MCHC RDW Plt Count MPV Sodium Potassium Chloride Carbon Dioxide Anion Gap BUN Creatinine Estimated GFR (MDRD) Glucose POC Capillary Glucose Calculated Osmolality Calcium Stool Occult Blood Neg - Assessment (1) Acute and chronic respiratory failure with hypercapnia Acute J96.22 - ACUTE AND CHRONIC RESPIRATORY FAILURE WITH HYPERCAPNIA Comment/Plan: Creatinine has improved to the point were we can obtain a CT scan and did so. No evidence of acute pneumonia. She has severe CHRONIC OBSTRUCTIVE PULMONARY DISEASE exacerbation with hypercarbia. (2) Stomatitis Acute K12.1 - OTHER FORMS OF STOMATITIS Comment/Plan: Appears to be improving with the administration nystatin and Magic mouthwash. (3) COPD with acute lower respiratory infection Acute J44.0 - CHRONIC OBSTRUCTIVE PULMON DISEASE W ACUTE LOWER RESP INFCT Comment/Plan: Patient's current antibiotic regimen had to be adjusted as she has a multidrug resistant Pseudomonas in her sputum. Fortunately the organism is sensitive to Primaxin and the aminoglycosides. It is partially sensitive to Cipro which is much easier to take. Will use combination of the Cipro and Primaxin which feel is superior to the Zosyn. (4) Type 2 diabetes mellitus with hyperglycemia Acute E11.65 - TYPE 2 DIABETES MELLITUS WITH HYPERGLYCEMIA Qualifiers: Diabetes mellitus terminal operations manager insulin use: with correction use Qualified Code( s): E11.65 - Type 2 diabetes mellitus with hyperglycemia; Z79.4 - [facility] ( current) use of insulin Comment/Plan: Plan: Lower home dose of long-acting insulin. Check FSBS qac and hs. Check a1c and urine microalbumin. (5) Chronic diastolic (congestive) heart failure Chronic I50.32 - CHRONIC DIASTOLIC (CONGESTIVE) HEART FAILURE Comment/Plan: Has CHRONIC but not acute diastolic CHF. Beta greg, JON inhibitor as tolerated. Home medications. Monitor for fluid overload. (6) Ambulatory dysfunction Acute R26.2 - DIFFICULTY IN WALKING, NOT ELSEWHERE CLASSIFIED Comment/Plan: Physical therapy seeing patient and walk 30 feet today. She appears to be motivated not to go to a senior care but rather home. (7) Anemia Acute D64.9 - ANEMIA, UNSPECIFIED Qualifiers: Anemia type: unspecified type Qualified Code(s): D64.9 - Anemia, unspecified Comment/Plan: Iron B12 folic acid studies have not shown definite iron deficiency. Will monitor during hospitalization. Hemoglobin is Not low enough to warrant transfusion. Disposition Plan: May need hospice at discharge versus [facility] facility.PT CONSULTED Case Care Discussed with: Patient, Nursing Staff, Resource Management Education/Counseling Given To: Patient Education/Counseling Given Regarding: Diagnosis, Treatment Total Time: 38 MIN Critical Care: No Code: 18380 (12+)
[2016-05-29] MEDS: IRON POLYSACCHARIDE CAP PO SCH (11:59)
[2016-05-29] MEDS ORDERED: PIPERACILLIN AND TAZOBACTAM 4.5 GM in D5W 100 ML IV SCH (18:00)
[2016-05-29] MEDS: FENTANYL 12 MCG PATCH TOP SCH (20:31)
[2016-05-29] MEDS: INSULIN DETEMIR 100 UNITS/ML PEN SQ SCH (20:32)
[2016-05-29] MEDS: REMOVE PATCH MAR ALERT SCH (20:35)
[2016-05-29] MEDS: METHYLPREDNISOLONE 40 MG/1 ML VIAL IV SCH (20:35)
[2016-05-30] MEDS: IMIPENEM CILASTATIN 250 MG in D5W 100 ML IV SCH ×4 (00:01→21:43)
[2016-05-30] MEDS: PROBIOTIC BLEND TAB PO SCH ×3 (00:03→17:41)
[2016-05-30] MEDS: CIPROFLOXACIN HCL 500 MG TAB PO SCH ×3 (00:03→21:42)
[2016-05-30] MEDS: Albuterol/Ipratropium Neb 3 ML NEB NEB SCH ×4 (02:28→19:00)
[2016-05-30 05:20] LABS: MPV 7.5 fL (7.4-10.4)
[2016-05-30 05:36] LABS: BLOOD UREA NITROGEN 34 MG/DL (7-17); CALCIUM 8.1 MG/DL (8.4-10.2); CALCULATED OSMOLALITY 281 MOs/Kg (270-290); CHLORIDE 97 mEq/L (98-107); GLUCOSE 219 MG/DL (70-99); SODIUM LEVEL 138 mEq/L (137-146)
[2016-05-30] MEDS: TRAMADOL HCL 50 MG TAB PO SCH ×3 (06:22→21:42)
[2016-05-30] MEDS: PANTOPRAZOLE 40 MG TAB PO SCH (06:22)
[2016-05-30] MEDS: REGULAR INSULIN 100 UNITS/ML - 3 ML VIAL SQ SCH ×4 (06:22→21:43)
[2016-05-30] MEDS: GABAPENTIN 100 MG CAP PO SCH ×3 (06:22→21:42)
[2016-05-30] MEDS: Celecoxib 200 MG CAP PO SCH ×2 (09:30→17:41)
[2016-05-30] MEDS: NYSTATIN ORAL SUSP 5 ML PO SCH ×4 (09:30→21:43)
[2016-05-30] MEDS: ALLOPURINOL 100 MG TAB PO SCH (09:31)
[2016-05-30] MEDS: METHYLPREDNISOLONE 40 MG/1 ML VIAL IV SCH ×2 (09:31→21:42)
[2016-05-30] MEDS: SERTRALINE HCL 100 MG TAB PO SCH (09:31)
[2016-05-30] MEDS: GUAIFENESIN 600 MG LA TAB PO SCH ×2 (09:31→21:42)
[2016-05-30] MEDS: MAGIC MOUTHWASH 180 ML ORAL SUSP PO SCH ×4 (09:37→21:43)
[2016-05-30] MEDS: DICLOFENAC 1% TOPICAL GEL 100 GM TUBE TOP SCH ×4 (09:38→21:43)
[2016-05-30] MEDS: IRON POLYSACCHARIDE CAP PO SCH (12:12)
[2016-05-30] MEDS: INSULIN DETEMIR 100 UNITS/ML PEN SQ SCH (21:44)
--- NOTE | 2016-05-30 22:00 | GENMEDPROG ---
Chief Complaint: Slightly improved shortness breath today Notes Reviewed: Yes Events from last night noted and discussed with Clinical Staff Current Medication List: Reviewed Currently: Reports: Cough, Wheezing, AMANDA, SOB DVT Prophylaxis: Yes - Physical Examination Vital Signs and I&O: Last Vital Signs Temp 97.9 F 05/30/16 20:48 Pulse 86 05/30/16 20:48 Resp 18 05/30/16 20:48 BP 142/60 05/30/16 20:48 Pulse Ox 100 05/30/16 20:48 Oxygen Pulse Oxygen Saturation 100 O2 Device Nasal Cannula Oxygen Flow Rate 95 Fraction of Inspired Oxygen ( 30 FIO2) Intake & Output 05/27/16 05/28/16 05/29/16 05/30/16 23:59 23:59 23:59 23:59 Intake Total 2142 2940 1539 1373 Output Total 2800 950 2100 2600 Balance -658 5211 -859 -6310 Patient's weight 66.043 kg General: Alert, Oriented x3, No acute distress, Well appearing, Well nourished HEENT: Normal (Normocephalic, atraumatic;EOMI.Sclera white, Nares patent, without discharge or bleeding. No oropharyngeal lesions or erythema. Mucous membranes are dry.) Neck: Non-tender, Full range of motion, Normal Trachea alignment, Normal inspection (No cervical lymphadenopathy. No supraclavicular lymphadenopathy.), No Masses palpable, Supple Lymphatics: Normal (No lymph node swelling or pain.) Respiratory: Accessory Muscle Use, Diminished, Rhonchi. negative: Rales, Tachypnea, Wheezes Cardiovascular: Regular rate and rhythm (No bradycardia or tachycardia), Normal S1, No Gallops,Rubs/Murmurs, Normal S2, Good Pedal Pulses (DP pulses 2+ bilaterally) GI: Normal bowel sounds (normal active sounds), Soft (non-distended), Non tender , No hepatospenomegaly, No masses Extremities/Musculoskeletal: Normal pulses (DP pulses 2+ bilaterally) Skin: Warm,Dry and Intact, No rashes, No significant lesion Neurological: Strength at 5/5 X4 ext (Motor 5/5 throughout.), Normal tone, Cranial nerves 3-12 NL ( 2-12 grossly intact.) Psych/Mental Status: Appropriate, Normal Affect Lab/DI/Studies Reviewed: 05/30/16 04:55 05/30/16 04:55 Laboratory Results - last 24 hr 05/30/16 05/30/16 05/30/16 04:55 04:55 05:26 WBC 6.4 RBC 3.77 L Hgb 10.9 L Hct 32.5 L MCV 86 MCH 29.0 MCHC 33.6 RDW 14.6 H Plt Count 114 L MPV 7.5 Sodium 138 Potassium 3.7 Chloride 97 L Carbon Dioxide 38 H Anion Gap 7 L BUN 34 H Creatinine 0.90 Estimated GFR (MDRD) > 60 Glucose 219 H POC Capillary Glucose 228 H Calculated Osmolality 281 Calcium 8.1 L 05/30/16 05/30/16 05/30/16 11:05 16:37 21:17 WBC RBC Hgb Hct MCV MCH MCHC RDW Plt Count MPV Sodium Potassium Chloride Carbon Dioxide Anion Gap BUN Creatinine Estimated GFR (MDRD) Glucose POC Capillary Glucose 245 H 268 H 355 H Calculated Osmolality Calcium - Assessment (1) Chronic diastolic (congestive) heart failure Acute I50.32 - CHRONIC DIASTOLIC (CONGESTIVE) HEART FAILURE Comment/Plan: Has acute on CHRONIC diastolic CHF. Restart diuretic. Beta greg, JON inhibitor as tolerated. Home medications. Monitor for fluid overload. (2) Acute and chronic respiratory failure with hypercapnia Acute J96.22 - ACUTE AND CHRONIC RESPIRATORY FAILURE WITH HYPERCAPNIA Comment/Plan: CT scan showed severe emphysema and scarring. She has severe CHRONIC OBSTRUCTIVE PULMONARY DISEASE exacerbation with hypercarbia. (3) Stomatitis Acute K12.1 - OTHER FORMS OF STOMATITIS Comment/Plan: Appears to be improving with the administration nystatin and Magic mouthwash. (4) COPD with acute lower respiratory infection Acute J44.0 - CHRONIC OBSTRUCTIVE PULMON DISEASE W ACUTE LOWER RESP INFCT Comment/Plan: Patient's current antibiotic regimen had to be adjusted as she has a multidrug resistant Pseudomonas in her sputum. Fortunately the organism is sensitive to Primaxin and the aminoglycosides. It is partially sensitive to Cipro which is much easier to take. Will use combination of the Cipro and Primaxin which feel is superior to the Zosyn. (5) Type 2 diabetes mellitus with hyperglycemia Acute E11.65 - TYPE 2 DIABETES MELLITUS WITH HYPERGLYCEMIA Qualifiers: Diabetes mellitus oil heaterman insulin use: with oil heaterman use Qualified Code( s): E11.65 - Type 2 diabetes mellitus with hyperglycemia; Z79.4 - long term care social worker ( current) use of insulin Comment/Plan: Plan: Lower home dose of long-acting insulin. Check FSBS qac and hs. Check a1c and urine microalbumin. (6) Ambulatory dysfunction Acute R26.2 - DIFFICULTY IN WALKING, NOT ELSEWHERE CLASSIFIED Comment/Plan: Physical therapy seeing patient and walk 75 feet today. She appears to be motivated not to go to a [facility] but rather home. (7) Anemia Acute D64.9 - ANEMIA, UNSPECIFIED Qualifiers: Anemia type: unspecified type Qualified Code(s): D64.9 - Anemia, unspecified Comment/Plan: Iron B12 folic acid studies have not shown definite iron deficiency. Will monitor during hospitalization. Hemoglobin is Not low enough to warrant transfusion. Case Care Discussed with: Patient, Nursing Staff, Resource Management Education/Counseling Given To: Patient Education/Counseling Given Regarding: Diagnosis Total Time: 39 min Critical Care: No Code: 87133 (12+)
[2016-05-30] MEDS: TORSEMIDE 20 MG TAB PO SCH (22:41)
[2016-05-30] MEDS ORDERED: FUROSEMIDE 40 MG/5 ML PO SCH (23:00)
[2016-05-31] MEDS: Albuterol/Ipratropium Neb 3 ML NEB NEB SCH ×4 (01:47→20:24)
[2016-05-31 04:38] LABS: MPV 7.2 fL (7.4-10.4)
[2016-05-31 04:49] LABS: BLOOD UREA NITROGEN 31 MG/DL (7-17); CALCULATED OSMOLALITY 283 MOs/Kg (270-290); CHLORIDE 94 mEq/L (98-107); GLUCOSE 244 MG/DL (70-99); SODIUM LEVEL 139 mEq/L (137-146)
[2016-05-31] MEDS: TRAMADOL HCL 50 MG TAB PO SCH ×3 (05:26→23:25)
[2016-05-31] MEDS: IMIPENEM CILASTATIN 250 MG in D5W 100 ML IV SCH ×3 (05:26→23:29)
[2016-05-31] MEDS: PANTOPRAZOLE 40 MG TAB PO SCH (05:26)
[2016-05-31] MEDS: GABAPENTIN 100 MG CAP PO SCH ×3 (05:26→23:25)
[2016-05-31] MEDS: REGULAR INSULIN 100 UNITS/ML - 3 ML VIAL SQ SCH ×3 (06:56→18:21)
[2016-05-31] MEDS: NYSTATIN ORAL SUSP 5 ML PO SCH ×4 (08:17→23:23)
[2016-05-31] MEDS: Celecoxib 200 MG CAP PO SCH ×2 (08:17→18:20)
[2016-05-31] MEDS: MAGIC MOUTHWASH 180 ML ORAL SUSP PO SCH ×4 (08:17→23:25)
[2016-05-31] MEDS: PREDNISONE 20 MG TAB PO SCH (08:17)
[2016-05-31] MEDS: DICLOFENAC 1% TOPICAL GEL 100 GM TUBE TOP SCH ×4 (08:18→23:27)
[2016-05-31] MEDS: CIPROFLOXACIN HCL 500 MG TAB PO SCH ×2 (08:18→23:25)
[2016-05-31] MEDS: TORSEMIDE 20 MG TAB PO SCH ×2 (08:18→23:26)
[2016-05-31] MEDS: SERTRALINE HCL 100 MG TAB PO SCH (08:19)
[2016-05-31] MEDS: GUAIFENESIN 600 MG LA TAB PO SCH ×2 (08:19→23:25)
[2016-05-31] MEDS: ALLOPURINOL 100 MG TAB PO SCH (08:20)
[2016-05-31] MEDS: PROBIOTIC BLEND TAB PO SCH ×2 (12:56→18:20)
[2016-05-31] MEDS: IRON POLYSACCHARIDE CAP PO SCH (12:57)
[2016-05-31] MEDS ORDERED: GLUCAGON 1 MG VIAL SQ PRN (16:48)
[2016-05-31] MEDS ORDERED: DEXTROSE 25 GM/50 ML PFS IV PRN (16:48)
[2016-05-31] MEDS ORDERED: GLUCOSE (ORAL GEL) 15 GM TUBE PO PRN (16:48)
--- NOTE | 2016-05-31 16:51 | GENMEDPROG ---
Chief Complaint: Occasional wheeze did not eat breakfast, still some shortness Notes Reviewed: Yes Events from last night noted and discussed with Clinical Staff Current Medication List: Reviewed Currently: Reports: Cough, Wheezing, AMANDA, SOB DVT Prophylaxis: Yes - Physical Examination Vital Signs and I&O: Last Vital Signs Temp 97.5 F 05/31/16 16:29 Pulse 71 05/31/16 16:29 Resp 17 05/31/16 16:29 BP 102/49 L 05/31/16 16:29 Pulse Ox 98 05/31/16 16:29 Oxygen Pulse Oxygen Saturation 98 O2 Device Nasal Cannula Oxygen Flow Rate 3 Fraction of Inspired Oxygen ( 30 FIO2) Intake & Output 05/28/16 05/29/16 05/30/16 05/31/16 23:59 23:59 23:59 23:59 Intake Total 2940 1539 1373 1116 Output Total 950 2100 2850 3450 Balance 1989 -447 -6504 -5004 Patient's weight 66.043 kg General: Alert, Oriented x3, No acute distress, Well appearing, Well nourished HEENT: Normal (Normocephalic, atraumatic;EOMI.Sclera white, Nares patent, without discharge or bleeding. No oropharyngeal lesions or erythema. Mucous membranes are dry.) Neck: Non-tender, Normal Trachea alignment, Normal inspection (No cervical lymphadenopathy. No supraclavicular lymphadenopathy.), No Masses palpable, Limited range of motion, Supple Lymphatics: Normal (No lymph node swelling or pain.) Respiratory: Accessory Muscle Use, Diminished, Rhonchi. negative: Rales, Tachypnea, Wheezes Cardiovascular: Regular rate and rhythm (No bradycardia or tachycardia), Normal S1, No Gallops,Rubs/Murmurs, Normal S2, Good Pedal Pulses (DP pulses 2+ bilaterally) GI: Normal bowel sounds (normal active sounds), Soft (non-distended), Non tender , No hepatospenomegaly, No masses Extremities/Musculoskeletal: Normal pulses (DP pulses 2+ bilaterally) Skin: Warm,Dry and Intact, No rashes, No significant lesion Neurological: Strength at 5/5 X4 ext (Motor 5/5 throughout.), Normal tone, Cranial nerves 3-12 NL ( 2-12 grossly intact.) Psych/Mental Status: Appropriate, Normal Affect Lab/DI/Studies Reviewed: 05/31/16 04:05 05/31/16 04:05 Laboratory Results - last 24 hr 05/30/16 05/31/16 05/31/16 21:17 04:05 04:05 WBC 7.8 RBC 3.88 L Hgb 11.1 L Hct 33.6 L MCV 87 MCH 28.7 MCHC 33.2 RDW 14.3 Plt Count 113 L MPV 7.2 L Sodium 139 Potassium 3.8 Chloride 94 L Carbon Dioxide 38 H Anion Gap 11 BUN 31 H Creatinine 0.90 Estimated GFR (MDRD) > 60 Glucose 244 H POC Capillary Glucose 355 H Calculated Osmolality 283 Calcium 8.0 L 05/31/16 05/31/16 05/31/16 05:33 11:51 16:08 WBC RBC Hgb Hct MCV MCH MCHC RDW Plt Count MPV Sodium Potassium Chloride Carbon Dioxide Anion Gap BUN Creatinine Estimated GFR (MDRD) Glucose POC Capillary Glucose 228 H 264 H 311 H Calculated Osmolality Calcium - Assessment (1) Chronic diastolic (congestive) heart failure Acute I50.32 - CHRONIC DIASTOLIC (CONGESTIVE) HEART FAILURE Comment/Plan: Has acute on CHRONIC diastolic CHF. Restart diuretic. Beta greg, JON inhibitor as tolerated. Home medications. Monitor for fluid overload. (2) Acute and chronic respiratory failure with hypercapnia Acute J96.22 - ACUTE AND CHRONIC RESPIRATORY FAILURE WITH HYPERCAPNIA Comment/Plan: CT scan showed severe emphysema and scarring. She has severe CHRONIC OBSTRUCTIVE PULMONARY DISEASE exacerbation with hypercarbia. (3) Stomatitis Acute K12.1 - OTHER FORMS OF STOMATITIS Comment/Plan: Appears to be improving with the administration nystatin and Magic mouthwash. (4) COPD with acute lower respiratory infection Acute J44.0 - CHRONIC OBSTRUCTIVE PULMON DISEASE W ACUTE LOWER RESP INFCT Comment/Plan: Patient's current antibiotic regimen had to be adjusted as she has a multidrug resistant Pseudomonas in her sputum. Fortunately the organism is sensitive to Primaxin and the aminoglycosides. It is partially sensitive to Cipro which is much easier to take. Will use combination of the Cipro and Primaxin which I feel is superior to the Zosyn. (5) Type 2 diabetes mellitus with hyperglycemia Acute E11.65 - TYPE 2 DIABETES MELLITUS WITH HYPERGLYCEMIA Qualifiers: Diabetes mellitus residential insulin use: with terminal worker use Qualified Code( s): E11.65 - Type 2 diabetes mellitus with hyperglycemia; Z79.4 - snf ( current) use of insulin Comment/Plan: Plan: Lower home dose of long-acting insulin. Check FSBS qac and hs. Check a1c and urine microalbumin. (6) Ambulatory dysfunction Acute R26.2 - DIFFICULTY IN WALKING, NOT ELSEWHERE CLASSIFIED Comment/Plan: Physical therapy seeing patient and walk 75 feet today. She appears to be motivated not to go to a prison but rather home. (7) Anemia Acute D64.9 - ANEMIA, UNSPECIFIED Qualifiers: Anemia type: unspecified type Qualified Code(s): D64.9 - Anemia, unspecified Comment/Plan: Iron B12 folic acid studies have not shown definite iron deficiency. Will monitor during hospitalization. Hemoglobin is Not low enough to warrant transfusion. Case Care Discussed with: Patient, Nursing Staff Education/Counseling Given To: Patient Education/Counseling Given Regarding: Diagnosis Total Time: 37 min Critical Care: No Code: 70407 (12+)
[2016-05-31] MEDS: INSULIN DETEMIR 100 UNITS/ML PEN SQ SCH (23:26)
[2016-06-01] MEDS: Albuterol/Ipratropium Neb 3 ML NEB NEB SCH ×4 (02:20→20:07)
[2016-06-01 06:10] LABS: MPV 7.7 fL (7.4-10.4)
[2016-06-01] MEDS: TRAMADOL HCL 50 MG TAB PO SCH ×3 (06:37→21:08)
[2016-06-01] MEDS: PANTOPRAZOLE 40 MG TAB PO SCH (06:37)
[2016-06-01 06:44] LABS: BLOOD UREA NITROGEN 38 MG/DL (7-17); CALCIUM 8.1 MG/DL (8.4-10.2); CALCULATED OSMOLALITY 281 MOs/Kg (270-290); CHLORIDE 89 mEq/L (98-107); GLUCOSE 211 MG/DL (70-99); SODIUM LEVEL 138 mEq/L (137-146)
[2016-06-01] MEDS: IMIPENEM CILASTATIN 250 MG in D5W 100 ML IV SCH ×3 (09:53→23:39)
[2016-06-01] MEDS: GABAPENTIN 100 MG CAP PO SCH ×3 (09:53→21:10)
[2016-06-01] MEDS: Celecoxib 200 MG CAP PO SCH ×2 (09:54→17:24)
[2016-06-01] MEDS: REGULAR INSULIN 100 UNITS/ML - 3 ML VIAL SQ SCH ×2 (09:54→17:24)
[2016-06-01] MEDS: GUAIFENESIN 600 MG LA TAB PO SCH ×2 (09:55→21:08)
[2016-06-01] MEDS: SERTRALINE HCL 100 MG TAB PO SCH (09:55)
[2016-06-01] MEDS: OXYCODONE HCL 5 MG TABLET PO PRN (09:56)
[2016-06-01] MEDS: ALLOPURINOL 100 MG TAB PO SCH (09:56)
[2016-06-01] MEDS: NYSTATIN ORAL SUSP 5 ML PO SCH ×4 (09:57→21:09)
[2016-06-01] MEDS: MAGIC MOUTHWASH 180 ML ORAL SUSP PO SCH ×4 (09:57→21:11)
[2016-06-01] MEDS: CIPROFLOXACIN HCL 500 MG TAB PO SCH ×2 (09:57→21:08)
[2016-06-01] MEDS: PREDNISONE 20 MG TAB PO SCH (09:57)
[2016-06-01] MEDS: DICLOFENAC 1% TOPICAL GEL 100 GM TUBE TOP SCH ×4 (09:58→21:10)
[2016-06-01] MEDS: TORSEMIDE 20 MG TAB PO SCH ×2 (09:58→21:09)
--- NOTE | 2016-06-01 11:32 | GENMEDPROG ---
Chief Complaint: Feels a little better. Coughing up more phlegm. No chest pain Notes Reviewed: Yes Events from last night noted and discussed with Clinical Staff Current Medication List: Reviewed Currently: Reports: Cough, Wheezing, AMANDA, SOB. Denies: Nausea and Vomiting, Abdominal Pain DVT Prophylaxis: Yes - Physical Examination Vital Signs and I&O: Last Vital Signs Temp 97.5 F 06/01/16 08:12 Pulse 82 06/01/16 10:00 Resp 18 06/01/16 08:12 BP 110/58 L 06/01/16 08:12 Pulse Ox 100 06/01/16 09:47 Oxygen Pulse Oxygen Saturation 100 O2 Device Nasal Cannula Oxygen Flow Rate 3 Fraction of Inspired Oxygen ( 30 FIO2) Intake & Output 05/29/16 05/30/16 05/31/16 06/01/16 23:59 23:59 23:59 23:59 Intake Total 1539 1373 1476 120 Output Total 2100 2850 4000 1150 Banner -177 -8107 -2524 -1030 Patient's weight 66.043 kg 66.179 kg 65.952 kg General: Alert, Oriented x3, No acute distress, Well appearing, Well nourished HEENT: Normal (Normocephalic, atraumatic;EOMI.Sclera white, Nares patent, without discharge or bleeding. No oropharyngeal lesions or erythema. Mucous membranes are dry.) Neck: Non-tender, Normal Trachea alignment, Normal inspection (No cervical lymphadenopathy. No supraclavicular lymphadenopathy.), No Masses palpable, Limited range of motion, Supple Lymphatics: Normal (No lymph node swelling or pain.) Respiratory: Accessory Muscle Use, Diminished, Rhonchi. negative: Rales, Tachypnea, Wheezes Cardiovascular: Regular rate and rhythm (No bradycardia or tachycardia), Normal S1, No Gallops,Rubs/Murmurs, Normal S2, Good Pedal Pulses (DP pulses 2+ bilaterally) GI: Normal bowel sounds (normal active sounds), Soft (non-distended), Non tender , No hepatospenomegaly, No masses Extremities/Musculoskeletal: Normal pulses (DP pulses 2+ bilaterally) Skin: Warm,Dry and Intact, No rashes, No significant lesion Neurological: Strength at 5/5 X4 ext (Motor 5/5 throughout.), Normal tone, Cranial nerves 3-12 NL ( 2-12 grossly intact.) Psych/Mental Status: Appropriate, Normal Affect Lab/DI/Studies Reviewed: Laboratory Results - last 24 hr 05/31/16 05/31/16 06/01/16 16:08 20:29 04:06 WBC RBC Hgb Hct MCV MCH MCHC RDW Plt Count MPV Sodium Potassium Chloride Carbon Dioxide Anion Gap BUN Creatinine Estimated GFR (MDRD) Glucose POC Capillary Glucose 311 H 256 H 237 H Calculated Osmolality Calcium 06/01/16 06/01/16 05:00 05:00 WBC 10.7 RBC 4.13 L Hgb 11.9 L Hct 35.8 L MCV 87 MCH 28.8 MCHC 33.2 RDW 14.5 Plt Count 115 L MPV 7.7 Sodium 138 Potassium 3.4 L Chloride 89 L Carbon Dioxide 41 H Anion Gap 11 BUN 38 H Creatinine 0.90 Estimated GFR (MDRD) > 60 Glucose 211 H POC Capillary Glucose Calculated Osmolality 281 Calcium 8.1 L - Assessment (1) Acute and chronic respiratory failure with hypercapnia Acute J96.22 - ACUTE AND CHRONIC RESPIRATORY FAILURE WITH HYPERCAPNIA Comment/Plan: Continue IV steroids, IV antibiotics, nebulizer treatments pulmonary toilet. Treating Pseudomonas. (2) COPD with acute lower respiratory infection Acute J44.0 - CHRONIC OBSTRUCTIVE PULMON DISEASE W ACUTE LOWER RESP INFCT Comment/Plan: Has multidrug resistant Pseudomonas. Continue IV Cipro and IV Primaxin. Will be difficult to permanently eradicate Pseudomonas from her lungs. (3) Chronic diastolic (congestive) heart failure Acute I50.32 - CHRONIC DIASTOLIC (CONGESTIVE) HEART FAILURE Comment/Plan: Continue current medications diurese as needed. (4) Stomatitis Acute K12.1 - OTHER FORMS OF STOMATITIS Comment/Plan: Appears to be improving with the administration nystatin and Magic mouthwash. (5) Type 2 diabetes mellitus with hyperglycemia Acute E11.65 - TYPE 2 DIABETES MELLITUS WITH HYPERGLYCEMIA Qualifiers: Diabetes mellitus mcc insulin use: with truck terminal manager use Qualified Code( s): E11.65 - Type 2 diabetes mellitus with hyperglycemia; Z79.4 - petroleum terminal plant operator ( current) use of insulin Comment/Plan: Accu-Cheks and sliding scale insulin (6) Ambulatory dysfunction Acute R26.2 - DIFFICULTY IN WALKING, NOT ELSEWHERE CLASSIFIED Comment/Plan: Encourage activity and mobility. Physical therapy monitoring. Still feel would benefit from [facility] facility placement. Case Care Discussed with: Patient, Nursing Staff, Resource Management, Respiratory Therapy
[2016-06-01] MEDS: IRON POLYSACCHARIDE CAP PO SCH (11:50)
[2016-06-01] MEDS: PROBIOTIC BLEND TAB PO SCH ×2 (11:50→17:24)
[2016-06-01] MEDS: FENTANYL 12 MCG PATCH TOP SCH (21:09)
[2016-06-01] MEDS: REMOVE PATCH MAR ALERT SCH (21:10)
[2016-06-01] MEDS: INSULIN DETEMIR 100 UNITS/ML PEN SQ SCH (21:20)
[2016-06-02] MEDS: Albuterol/Ipratropium Neb 3 ML NEB NEB SCH ×4 (01:26→20:40)
[2016-06-02] MEDS: PANTOPRAZOLE 40 MG TAB PO SCH (05:12)
[2016-06-02] MEDS: TRAMADOL HCL 50 MG TAB PO SCH ×3 (05:12→19:47)
[2016-06-02] MEDS: GABAPENTIN 100 MG CAP PO SCH ×3 (05:13→19:46)
[2016-06-02 06:08] LABS: AUTOMATED BASOPHIL 0.2 % (0-2); AUTOMATED EOSINOPHIL 0.7 % (0-5); AUTOMATED LYMPH 4.4 % (17-44); AUTOMATED MONOCYTE 4.7 % (3-10); MPV 7.5 fL (7.4-10.4)
[2016-06-02] MEDS: IMIPENEM CILASTATIN 250 MG in D5W 100 ML IV SCH ×3 (06:09→19:49)
[2016-06-02] MEDS: REGULAR INSULIN 100 UNITS/ML - 3 ML VIAL SQ SCH ×2 (06:09→17:17)
[2016-06-02 06:25] LABS: BLOOD UREA NITROGEN 41 MG/DL (7-17); CALCIUM 7.8 MG/DL (8.4-10.2); CALCULATED OSMOLALITY 278 MOs/Kg (270-290); CHLORIDE 88 mEq/L (98-107); GLUCOSE 163 MG/DL (70-99); SODIUM LEVEL 137 mEq/L (137-146)
[2016-06-02] MEDS: MAGIC MOUTHWASH 180 ML ORAL SUSP PO SCH ×4 (08:13→19:47)
[2016-06-02] MEDS: DICLOFENAC 1% TOPICAL GEL 100 GM TUBE TOP SCH ×4 (08:14→19:47)
[2016-06-02] MEDS: GUAIFENESIN 600 MG LA TAB PO SCH ×2 (08:17→19:46)
[2016-06-02] MEDS: NYSTATIN ORAL SUSP 5 ML PO SCH ×4 (08:17→19:46)
[2016-06-02] MEDS: TORSEMIDE 20 MG TAB PO SCH ×2 (08:18→19:47)
[2016-06-02] MEDS: PREDNISONE 20 MG TAB PO SCH (08:18)
[2016-06-02] MEDS: Celecoxib 200 MG CAP PO SCH ×2 (08:18→17:16)
[2016-06-02] MEDS: CIPROFLOXACIN HCL 500 MG TAB PO SCH ×2 (08:18→19:47)
[2016-06-02] MEDS: SERTRALINE HCL 100 MG TAB PO SCH (08:18)
[2016-06-02] MEDS: ALLOPURINOL 100 MG TAB PO SCH (08:19)
[2016-06-02] MEDS: PROBIOTIC BLEND TAB PO SCH ×2 (11:38→17:16)
[2016-06-02] MEDS: OXYCODONE HCL 5 MG TABLET PO PRN ×2 (11:38→19:48)
[2016-06-02] MEDS: IRON POLYSACCHARIDE CAP PO SCH (11:38)
--- NOTE | 2016-06-02 17:11 | GENMEDPROG ---
Chief Complaint: Slowly better. No chest pain or shortness of breath. Notes Reviewed: Yes Events from last night noted and discussed with Clinical Staff Current Medication List: Reviewed Currently: Reports: Cough, Wheezing, AMANDA, SOB. Denies: Nausea and Vomiting, Abdominal Pain DVT Prophylaxis: Yes - Physical Examination Vital Signs and I&O: Last Vital Signs Temp 97.8 F 06/02/16 12:39 Pulse 84 06/02/16 12:39 Resp 18 06/02/16 12:39 BP 128/66 06/02/16 12:39 Pulse Ox 96 06/02/16 12:39 Oxygen Pulse Oxygen Saturation 96 O2 Device Nasal Cannula Oxygen Flow Rate 3 Fraction of Inspired Oxygen ( 30 FIO2) Intake & Output 05/30/16 05/31/16 06/01/16 06/02/16 23:59 23:59 23:59 23:59 Intake Total 1373 1476 1541 920 Output Total 2850 4000 2200 2500 Balance -0958 -2524 -659 -4860 Patient's weight 66.179 kg 65.952 kg 66.088 kg General: Alert, Oriented x3, No acute distress, Well appearing, Well nourished HEENT: Normal (Normocephalic, atraumatic;EOMI.Sclera white, Nares patent, without discharge or bleeding. No oropharyngeal lesions or erythema. Mucous membranes are dry.), PERRLA, EOMI, Anicteric Sclera Neck: Non-tender, Normal Trachea alignment, Normal inspection (No cervical lymphadenopathy. No supraclavicular lymphadenopathy.), No Masses palpable, Limited range of motion, Supple Lymphatics: Normal (No lymph node swelling or pain.) Respiratory: Accessory Muscle Use, Diminished, Rhonchi. negative: Rales, Tachypnea, Wheezes Cardiovascular: Regular rate and rhythm (No bradycardia or tachycardia), Normal S1, No Gallops,Rubs/Murmurs, Normal S2, Good Pedal Pulses (DP pulses 2+ bilaterally) GI: Normal bowel sounds (normal active sounds), Soft (non-distended), Non tender , No hepatospenomegaly, No masses Extremities/Musculoskeletal: Normal pulses (DP pulses 2+ bilaterally) Skin: Warm,Dry and Intact, No rashes, No significant lesion Neurological: Strength at 5/5 X4 ext (Motor 5/5 throughout.), Normal tone, Cranial nerves 3-12 NL ( 2-12 grossly intact.) Psych/Mental Status: Appropriate, Normal Affect Lab/DI/Studies Reviewed: Laboratory Results - last 24 hr 06/02/16 06/02/16 06/02/16 05:37 05:40 05:40 WBC 13.8 H RBC 3.96 L Hgb 11.3 L Hct 34.2 L MCV 86 MCH 28.6 MCHC 33.1 RDW 14.7 H Plt Count 111 L MPV 7.5 Neut % (Auto) 90.0 H Lymph % (Auto) 4.4 L [place] % (Auto) 4.7 Eos % (Auto) 0.7 Baso % (Auto) 0.2 Absolute Neuts (auto) 12.42 H Absolute Lymphs (auto) 0.55 L Sodium 137 Potassium 3.2 L Chloride 88 L Carbon Dioxide 46 H Anion Gap 6 L BUN 41 H Creatinine 0.90 Estimated GFR (MDRD) > 60 Glucose 163 H POC Capillary Glucose 162 H Calculated Osmolality 278 Calcium 7.8 L 06/02/16 16:49 WBC RBC Hgb Hct MCV MCH MCHC RDW Plt Count MPV Neut % (Auto) Lymph % (Auto) [place] % (Auto) Eos % (Auto) Baso % (Auto) Absolute Neuts (auto) Absolute Lymphs (auto) Sodium Potassium Chloride Carbon Dioxide Anion Gap BUN Creatinine Estimated GFR (MDRD) Glucose POC Capillary Glucose 379 H Calculated Osmolality Calcium - Assessment (1) Acute and chronic respiratory failure with hypercapnia Acute J96.22 - ACUTE AND CHRONIC RESPIRATORY FAILURE WITH HYPERCAPNIA Comment/Plan: Continue current care and monitor. IV steroids, IV antibiotics and nebulizer treatments. (2) COPD with acute lower respiratory infection Acute J44.0 - CHRONIC OBSTRUCTIVE PULMON DISEASE W ACUTE LOWER RESP INFCT Comment/Plan: Has multidrug resistant Pseudomonas. Continue IV Cipro and IV Primaxin. Will be difficult to permanently eradicate Pseudomonas from her lungs. (3) Chronic diastolic (congestive) heart failure Acute I50.32 - CHRONIC DIASTOLIC (CONGESTIVE) HEART FAILURE Comment/Plan: Continue current medications diurese as needed. (4) Stomatitis Acute K12.1 - OTHER FORMS OF STOMATITIS Comment/Plan: Appears to be improving with the administration nystatin and Magic mouthwash. (5) Type 2 diabetes mellitus with hyperglycemia Acute E11.65 - TYPE 2 DIABETES MELLITUS WITH HYPERGLYCEMIA Qualifiers: Diabetes mellitus intermediate frame tender insulin use: with usp use Qualified Code( s): E11.65 - Type 2 diabetes mellitus with hyperglycemia; Z79.4 - assistant terminal manager ( current) use of insulin Comment/Plan: Accu-Cheks and sliding scale insulin (6) Ambulatory dysfunction Acute R26.2 - DIFFICULTY IN WALKING, NOT ELSEWHERE CLASSIFIED Comment/Plan: Encourage activity and mobility. Physical therapy monitoring. Still feel would benefit from long-term facility placement. Case Care Discussed with: Patient, Nursing Staff, Physical Therapy, Resource Management, Respiratory Therapy, Case Manager Specialist
[2016-06-02] MEDS: INSULIN DETEMIR 100 UNITS/ML PEN SQ SCH (19:49)
[2016-06-03] MEDS: IMIPENEM CILASTATIN 250 MG in D5W 100 ML IV SCH ×3 (01:39→13:54)
[2016-06-03] MEDS: Albuterol/Ipratropium Neb 3 ML NEB NEB SCH ×3 (02:41→13:57)
[2016-06-03 05:02] LABS: MPV 7.8 fL (7.4-10.4)
[2016-06-03 05:14] LABS: BLOOD UREA NITROGEN 43 MG/DL (7-17); CALCIUM 8.2 MG/DL (8.4-10.2); CALCULATED OSMOLALITY 275 MOs/Kg (270-290); CHLORIDE 89 mEq/L (98-107); GLUCOSE 131 MG/DL (70-99); SODIUM LEVEL 136 mEq/L (137-146)
[2016-06-03] MEDS: ALBUTEROL 0.083% 3 ML NEB NEB PRN (05:45)
[2016-06-03] MEDS: GABAPENTIN 100 MG CAP PO SCH ×2 (06:17→13:54)
[2016-06-03] MEDS: TRAMADOL HCL 50 MG TAB PO SCH ×2 (06:17→13:54)
[2016-06-03] MEDS: PANTOPRAZOLE 40 MG TAB PO SCH (06:18)
[2016-06-03] MEDS: REGULAR INSULIN 100 UNITS/ML - 3 ML VIAL SQ SCH (06:34)
[2016-06-03] MEDS: Celecoxib 200 MG CAP PO SCH (09:29)
[2016-06-03] MEDS: PREDNISONE 20 MG TAB PO SCH (09:30)
[2016-06-03] MEDS: NYSTATIN ORAL SUSP 5 ML PO SCH ×3 (09:30→15:27)
[2016-06-03] MEDS: MAGIC MOUTHWASH 180 ML ORAL SUSP PO SCH ×3 (09:30→15:27)
[2016-06-03] MEDS: DICLOFENAC 1% TOPICAL GEL 100 GM TUBE TOP SCH ×3 (09:31→15:27)
[2016-06-03] MEDS: ALLOPURINOL 100 MG TAB PO SCH (09:32)
[2016-06-03] MEDS: CIPROFLOXACIN HCL 500 MG TAB PO SCH (09:32)
[2016-06-03] MEDS: GUAIFENESIN 600 MG LA TAB PO SCH (09:33)
[2016-06-03] MEDS: SERTRALINE HCL 100 MG TAB PO SCH (09:34)
[2016-06-03] MEDS: TORSEMIDE 20 MG TAB PO SCH (09:34)
--- NOTE | 2016-06-03 09:57 | PCM.DCS92 ---
- Final/Secondary Discharge Diagnosis (1) Acute and chronic respiratory failure with hypercapnia Acute J96.22 - ACUTE AND CHRONIC RESPIRATORY FAILURE WITH HYPERCAPNIA Present on Admission: Yes Comment: Feels better and requests discharge home. Says her breathing is at baseline. She is however very functionally weak and physical therapy have recommended longterm facility placement. (2) COPD with acute lower respiratory infection Acute J44.0 - CHRONIC OBSTRUCTIVE PULMON DISEASE W ACUTE LOWER RESP INFCT Present on Admission: Yes Comment: Has multidrug resistant Pseudomonas. Respiratory status at baseline. Treated for prolonged course in the hospital. Will continue Cipro as outpatient (3) Chronic diastolic (congestive) heart failure Acute I50.32 - CHRONIC DIASTOLIC (CONGESTIVE) HEART FAILURE Present on Admission: Yes Comment: Continue current medications diurese as needed. (4) Stomatitis Acute K12.1 - OTHER FORMS OF STOMATITIS Present on Admission: Yes Comment: Appears to be improving with the administration nystatin and Magic mouthwash. (5) Type 2 diabetes mellitus with hyperglycemia Acute E11.65 - TYPE 2 DIABETES MELLITUS WITH HYPERGLYCEMIA Present on Admission: Yes with fpc use E11.65 - Type 2 diabetes mellitus with hyperglycemia; Z79.4 - terminal operations manager (current) use of insulin Comment: Accu-Cheks and sliding scale insulin (6) Ambulatory dysfunction Acute R26.2 - DIFFICULTY IN WALKING, NOT ELSEWHERE CLASSIFIED Present on Admission: Yes Comment: Encourage activity and mobility. Physical therapy monitoring. Still feel would benefit from longterm facility placement. Discharge Disposition: Residential Facility Discharge Condition: Improved Cognitive Discharge Status: Unimpaired Fuctional Discharge Status: Deconditioning, Post-op Weakness Physician Follow up/Referrals: None,No Provider [NonStaff] - One Week New Prescriptions: Ciprofloxacin HCl [Cipro] 500 mg PO BID #20 tablet ClonazePAM [Klonopin] 0.5 mg PO TID PRN #20 tablet PRN Reason: Anxiety Fentanyl [Duragesic 12 mcg/hr patch] 12 mcg TOP Q72H #10 patch Hydrocodone Bit/Acetaminophen [Racine 5-325 Tablet] 0.5 tab PO BID #30 tablet Prednisone [Sterapred 5 mg/6 day Uni-Pack] 21 tab PO DIR #1 pack Discharge Home Medication List Allopurinol [Zyloprim] 100 mg PO DAILY 05/23/16 [History Confirmed 05/23/16 Last Taken 05/22/16] Aspirin (Enteric Coated) [Halfprin] 81 mg PO DAILY 05/23/16 [History Confirmed 05/23/16 Last Taken 05/22/16] CYANOCOBALAMIN (Vitamin B-12) [Vitamin B-12 (cyanocobalamin)] 1,000 mcg IM .MONTHLY 05/23/16 [History Confirmed 05/23/16 Last Taken Unknown] Celecoxib [Celebrex] 200 mg PO BID 05/23/16 [History Confirmed 05/23/16 Last Taken 05/22/16] Colchicine 0.6 mg PO BID PRN 05/23/16 [History Confirmed 05/23/16 Last Taken ] Diclofenac Sodium [Voltaren 1% Topical Gel] 2 gm TOP QID 05/23/16 [History Confirmed 05/23/16 Last Taken Unknown] Diltiazem HCl [Diltiazem ER] 240 mg PO DAILY 05/23/16 [History Confirmed Last Taken 05/22/16] Gabapentin 100 mg PO BID 05/23/16 [History Confirmed 05/23/16 Last Taken ] Insulin Detemir [Levemir Flextouch] 0 unit SQ .QHS SEE COMMENTS 05/23/16 [ History Confirmed 05/23/16 Last Taken 05/22/16] Iron [Niferex-150] 65 mg PO DAILY 05/23/16 [History Confirmed 05/23/16 Last Taken 05/22/16] Omeprazole 40 mg PO DAILY 05/23/16 [History Confirmed 05/23/16 Last Taken ] Potassium Chloride 20 meq PO DAILY 05/23/16 [History Confirmed 05/23/16 Last Taken 05/22/16] Sertraline HCl 150 mg PO DAILY 05/23/16 [History Confirmed 05/23/16 Last Taken 05/22/16] Tiotropium [place] [Spiriva] 18 mcg INH DAILY PRN 05/23/16 [History Confirmed Last Taken 05/22/16] Torsemide [Demadex] 20 mg PO BID 05/23/16 [History Confirmed 05/23/16 Last Taken Unknown] Ciprofloxacin HCl [Cipro] 500 mg PO BID #20 tablet 06/03/16 [Rx Last Taken Unknown] ClonazePAM [Klonopin] 0.5 mg PO TID PRN #20 tablet 06/03/16 [Rx Last Taken Unknown] Fentanyl [Duragesic 12 mcg/hr patch] 12 mcg TOP Q72H #10 patch 06/03/16 [Rx Last Taken Unknown] Hydrocodone Bit/Acetaminophen [Racine 5-325 Tablet] 0.5 tab PO BID #30 tablet 03/10 [Rx Last Taken Unknown] Prednisone [Sterapred 5 mg/6 day Uni-Pack] 21 tab PO DIR #1 pack 06/03/16 [ Rx Last Taken Unknown] Tramadol HCl [Ultram] 50 mg PO TID #60 06/03/16 [Rx Confirmed 05/23/16 Last Taken 05/22/16] O2 Device: Nasal Cannula Oxygen to be used after Discharge: Continuous Diet at Discharge: Heart Healthy Activity: As Tolerated Call Office For: Worsening Symptoms - DC Summary Notes Hospital Course Note:: Discharge summary on patient named SHELLY PEARCE admitted to [facility] on 05/23/16 by Roque Gonzalez MD. Date of discharge is []. Ms. 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 She presented to the hospital with increasing respiratory distress, worsening cough and congestion. She was admitted to the hospital, started on IV steroids, IV antibiotics and nebulizer treatments. Her sputum culture grew out Pseudomonas. She was converted over to anti pseudomonal antibiotics and has received a full 7 day course of IV antibiotics here in the hospital. She states that she feels much better and is almost back to baseline. She has been working with physical therapy and has ambulated short distances in the halls and recommendation has been for longterm facility placement. At the time of discharge she is still considering this though it sounds as if she prefers to be treated at home. She lives with her daughter who normally cares for her. Her respiratory status is at baseline and she feels well. It is unlikely that we will be able to eradicate the Pseudomonas completely. It is resistant to Levaquin but intermediately sensitive to Cipro. Based on the sensitivities we will continue to treat her with oral Cipro for prolonged course as an outpatient. At this point she has reached maximal hospital benefit and is stable for discharge home. Have recommended to her short-term longterm facility as noted above she is considering this. Total Time: 1 hour - Physical Exam Vital Signs: Last Vital Signs Temp 98.4 F 01/10/17 04:10 Pulse 103 06/03/16 06:00 Resp 18 06/03/16 04:10 BP 119/56 L 06/03/16 04:10 Pulse Ox 93 06/03/16 08:00 Oxygen Pulse Oxygen Saturation 93 O2 Device Nasal Cannula Oxygen Flow Rate 3 Fraction of Inspired Oxygen ( 30 FIO2) Constitutional: No apparent distress, Alert. negative: Well nourished, Well appearing (Chronically ill-appearing but likely at baseline) Oriented to: Time, Person, Place - HEENT Head: Normal Eye: Normal. negative: Pale Conjunctiva, Scleral Icterus Oropharynx: Normal. negative: Membranes Dry - Respiratory/Cardiovascular Respiratory: Diminished. negative: Rales, Tachypnea, Wheezes Cardiovascular: Normal - GI Auscultation: Normal Palpation: Normal Tenderness: Non tender Mcgee's Sign: Negative - Musculoskeletal Back: Normal. negative: CVA Tenderness Extremities: Clubbing, Other (CHRONIC VENOUS STAINING). negative: Pedal Edema - Integumentary Skin: Warm, Dry Lymphatics: Normal (No lymph node swelling or pain.) - Neurologic Memory Impaired: Normal Motor Function: Normal Cranial Nerve: Normal Cerebellar: Normal Mood Description: Anxious Thought: Coherent Perception: Normal
[2016-06-03 11:45] VITALS: BP 147/77; PULSE 99; TEMP 97.4
[2016-06-03] MEDS: IRON POLYSACCHARIDE CAP PO SCH (13:54)
[2016-06-03] MEDS: PROBIOTIC BLEND TAB PO SCH (13:54)
== END 2016-06-03 15:58 | disposition home health service (06) | DRG 189 ==
LOC: ED 04:19 → EDINP 06:03 → PCU 10:30
PROVIDERS: ADMIT Internal Medicine; ATTEND Hospitalist
PROC: 039B3ZZ Drainage of Right Radial Artery, Percutaneous Approach (ICD-10-PCS; principal; 2016-05-23)
PROC: 5A09357 Assistance with Respiratory Ventilation, Less than 24 Consecutive Hours, Continuous Positive Airway Pressure (ICD-10-PCS; 2016-05-23)
PROC: 02HV33Z Insertion of Infusion Device into Superior Vena Cava, Percutaneous Approach (ICD-10-PCS; 2016-05-27)
PROC: B5181ZA Fluoroscopy of Superior Vena Cava using Low Osmolar Contrast, Guidance (ICD-10-PCS; 2016-05-27)
PROC: B548ZZA Ultrasonography of Superior Vena Cava, Guidance (ICD-10-PCS; 2016-05-27)
DX: J96.22 Acute and chronic respiratory failure with hypercapnia (principal); I50.32 Chronic diastolic (congestive) heart failure; E11.65 Type 2 diabetes mellitus with hyperglycemia; J44.0 Chronic obstructive pulmonary disease with (acute) lower respiratory infection; D69.6 Thrombocytopenia, unspecified; J44.1 Chronic obstructive pulmonary disease with (acute) exacerbation; K12.1 Other forms of stomatitis; Z79.4 Long term (current) use of insulin; R26.2 Difficulty in walking, not elsewhere classified; Z99.81 Dependence on supplemental oxygen; I48.0 Paroxysmal atrial fibrillation; I10 Essential (primary) hypertension; J45.909 Unspecified asthma, uncomplicated; K21.9 Gastro-esophageal reflux disease without esophagitis; M19.90 Unspecified osteoarthritis, unspecified site; M10.9 Gout, unspecified; F41.9 Anxiety disorder, unspecified; Z88.5 Allergy status to narcotic agent; Z79.82 Long term (current) use of aspirin; Z79.899 Other long term (current) drug therapy; Z87.891 Personal history of nicotine dependence; R00.0 Tachycardia, unspecified; M79.671 Pain in right foot; R10.9 Unspecified abdominal pain; G89.29 Other chronic pain; D64.9 Anemia, unspecified; B96.5 Pseudomonas (aeruginosa) (mallei) (pseudomallei) as the cause of diseases classified elsewhere
CPT/HCPCS: 36415; 36569; 36600; 71010; 71275; 76937; 77001; 80048; 80053; 81001; 82043; 82272; 82803; 82962; 83036; 83605; 83880; 85025; 85027; 85379; 85610; 85730; 87040; 87070; 87077; 87086; 87186; 87205; 90656; 93005; 94640; 94660; 96365; 96366; 96372; 97161; 98960; 99285; A9698; J0743; J1940; J1956; J2001; J2270; J2543; J2920; J2930; J3490; J7060; J7620